=== PATIENT | female | born 1940 | race Caucasian/White ===

== ENCOUNTER → 2017-02-07 17:56 | Outpatient (CLI) | payer MEDICARE, OTHER, SELFPAY | PROVIDERS: Visit Provider Otolaryngology | DX: R69 Illness, unspecified (principal) | CPT/HCPCS: 87070; 87205 ==

== ENCOUNTER → 2017-07-02 09:09 | Outpatient (CLI) | payer MEDICARE, OTHER, SELFPAY ==
--- NOTE | 2017-07-02 09:15 | ECHOD_ITS ---
Reason For Study: PHTN, cough Procedure This was a 2D Doppler, Color Flow transthoracic echocardiogram. The exam was of fair technical quality due to body habitus. The study was technically difficult. Exam performed in department. Left Ventricle Normal LV size. Left ventricular systolic function is normal. The estimated ejection fraction is 60 %. Normal diastology for age. No regional wall motion abnormalities noted. Right Ventricle Normal RV size. Normal systolic function. Atria The left atrium is mildly enlarged. Normal right atrium. No doppler evidence for ASD. Mitral Valve There is no mitral annular calcification. Normal mitral valve. Trivial mitral valve insufficiency. Tricuspid Valve Normal tricuspid valve. Mild tricuspid valve insufficiency. Right ventricular systolic pressure estimated to be 31 mmHg. Aortic Valve Trisinus/trileaflet aortic valve. Mild focal aortic valve calcification. Pulmonic Valve The pulmonic valve is not well visualized. Trivial pulmonic valve insufficiency. Great Vessels Normal sized aortic root. Calcified aortic root. Pericardium/Pleural No pericardial effusion. MMode/2D Measurements & Calculations LVIDd: 3.6 cm IVSd: 1.0 cm Ao root diam: 3.2 cm LVIDs: 2.7 cm LVPWd: 0.77 cm RVDd: 3.4 cm FS: 26.9 % LAV(MOD-bp): 61.9 ml LA A4 area: 20.0 cm2 RA A4 area: 15.2 cm2 LAV(MOD-bp) Indexed: 32.4 ml/m2 LAV(MOD-sp2): 55.4 ml LAV(MOD-sp4): 68.5 ml Doppler Measurements & Calculations MV E max luis: 60.3 cm/sec Lat Peak E' Luis: 10.8 cm/sec Med Peak E' Luis: 5.7 cm/sec MV A max luis: 87.5 cm/sec E/E' lat: 5.6 E/E' med: 10.6 MV E/A: 0.69 Ao V2 max: 112.7 cm/sec LV V1 max: 106.4 cm/sec PA V2 max: 69.9 cm/sec Ao max P.1 mmHg LV V1 max P.5 mmHg PI end-d luis: 139.8 cm/sec TR max luis: 241.4 cm/sec TR max P.4 mmHg Interpretation Summary The study was technically difficult. Left ventricular systolic function is normal. The estimated ejection fraction is 60 %. The left atrium is mildly enlarged. Trivial mitral valve insufficiency. Mild tricuspid valve insufficiency. Mild focal aortic valve calcification. Trivial pulmonic valve insufficiency. Calcified aortic root. Right ventricular systolic pressure estimated to be 31 mmHg. Normal diastology for age. Ordering Physician: Yakov Lima Referring Physician: Yakov Lima Performed By: Ashley Martin RDCS, RVT
--- NOTE | 2017-07-02 13:37 | PFT ---
INTRODUCTION: The patient is a 77-year-old female currently under the care of Dr. Lima presents for pulmonary function testing secondary to a diagnosis of cough. Respiratory therapy reports good patient effort. Bronchodilators were used during testing. INTERPRETATION: Forced expiration spirometry demonstrates no evidence of a large airways obstructive ventilatory defect. There was no significant response to aerosolized bronchodilators, based upon strict ATS criteria. Spirograms are of good quality and plateau gradually indicating slow emptying of the lungs. The respiratory flow volume loop reveals decreased expiratory flow rates at high lung volumes consistent with small airways obstruction. Body plethysmography was performed and reveals lung volumes to be within normal limits. Diffusing capacity by single breath CO was at the lower limits of normal. IMPRESSION: These pulmonary function studies are essentially within normal limits. However, there are subtle findings of potential small airways obstruction. If asthma is of clinical concern, a methacholine challenge can be completed for further clarification.
--- NOTE | 2017-07-02 13:40 | PFT_ITS ---
INTRODUCTION: The patient is a 77-year-old female currently under the care of Dr. Lima presents for pulmonary function testing secondary to a diagnosis of cough. Respiratory therapy reports good patient effort. Bronchodilators were used during testing. INTERPRETATION: Forced expiration spirometry demonstrates no evidence of a large airways obstructive ventilatory defect. There was no significant response to aerosolized bronchodilators, based upon strict ATS criteria. Spirograms are of good quality and plateau gradually indicating slow emptying of the lungs. The respiratory flow volume loop reveals decreased expiratory flow rates at high lung volumes consistent with small airways obstruction. Body plethysmography was performed and reveals lung volumes to be within normal limits. Diffusing capacity by single breath CO was at the lower limits of normal. IMPRESSION: These pulmonary function studies are essentially within normal limits. However , there are subtle findings of potential small airways obstruction. If asthma is of clinical concern, a methacholine challenge can be completed for further clarification.
== END ==
PROVIDERS: Family Provider Family Medicine; Visit Provider Family Medicine
DX: I27.20 Pulmonary hypertension, unspecified (principal); R05 Cough
CPT/HCPCS: 93306; 94060; 94726; 94729

== ENCOUNTER → 2017-08-06 10:12 | Outpatient (CLI) | payer MEDICARE, OTHER, SELFPAY ==
--- NOTE | 2017-08-06 10:15 | NM_ITS ---
CLINICAL: 77-year-old female with reported history of painful left hip arthroplasty operated > 10 years previous. THREE PHASE PELVIS- WHOLE BODY RADIONUCLIDE 99m Tc MDP BONE SCINTIGRAPHY COMPARISON: None available FINDINGS: Following the intravenous administration of 25.5 mCi of 99m Tc MDP, bone images reveal: 1. The flow and immediate static blood pool acquisitions of the pelvis demonstrate normal arterial and venous phase distribution of the radiopharmaceutical. 2. Delayed acquisitions demonstrate increased tracer concentration noted in the acetabular component of the symptomatic left hip arthroplasty. 3. Facilitated tracer concentration is noted in the mid cervical spine posteriorly on the left and right, visualized left wrist and hand, patellofemoral compartment of the right knee, the fifth lumbar vertebra and first sacral segment at the intervertebral disc space. 4. The remaining skeletal structures are scintigraphically unremarkable with bilateral renal units and urinary bladder activity identified. The right kidney demonstrates prominent collecting system activity noted at the level of the renal pelvis. NM/Bone Scan Three Phase IMPRESSION: 1. Increased tracer concentration defined in the acetabular component of the symptomatic-painful left hip prosthesis is consistent with a high likelihood of loosening in the setting of operative intervention > 2 years prior to the current presentation. If an infectious etiology is a diagnostic consideration, correlation with labeled leukocyte imaging is recommended. 2. Degenerative arthritis appears expressed in the cervical spine, fifth lumbar vertebra and sacrum, left wrist and hand, the right knee. 3. There is no definitive typical scintigraphic evidence of skeletal metastatic disease on the current examination. Electronically Signed: Nhan Jones DO at 10:39 EDT Tel , Service support ,
== END ==
PROVIDERS: Family Provider Family Medicine; PCP Family Medicine
DX: M25.552 Pain in left hip (principal); Z96.642 Presence of left artificial hip joint
CPT/HCPCS: 78315

== ENCOUNTER 2017-08-23 19:33 | Observation (INO) | payer MEDICARE, OTHER, SELFPAY ==
[2017-08-23 19:36] VITALS: BP 153/96; PULSE 90; PULSE 93; RESP 18; TEMP 37.3; O2SAT 97; O2SAT 99; BMI 30.2
--- NOTE | 2017-08-23 19:39 | EKG12_ITS ---
Test Reason : CP Blood Pressure : / mmHG Vent. Rate : 078 BPM Atrial Rate : 078 BPM P-R Int : 214 ms QRS Dur : 076 ms QT Int : 358 ms P-R-T Axes : 000 000 024 degrees QTc Int : 408 ms Sinus rhythm with 1st degree A-V block Otherwise normal ECG Confirmed by BUNNY GARCIA, MICHELLE ([id number]), communications editor GINGER REEDER ([id number]) on 08/27/2017 1:47:41 PM Referred By: VICENTE Confirmed By:MICHELLE HOLLIS MD
--- NOTE | 2017-08-23 19:39 | RAD_ITS ---
STUDY: X-RAY CHEST REASON FOR EXAM: Female, 77 years old. Chest pain TECHNIQUE: Single frontal view COMPARISON: None. FINDINGS: The lungs are clear and expanded. There is no demonstrated pleural abnormality. Normal size heart. Normal mediastinum and andreas. Normal visualized pulmonary arteries. Calcified aortic arch and descending thoracic aorta. Normal visualized thoracic spine. Normal visualized ribs, clavicles, and shoulders. There is no demonstrated abnormality of the visualized soft tissue structures of the upper abdomen. RAD/Chest 1 View (Portable) IMPRESSION: Normal x-ray examination of the chest. Electronically Signed: Freddie Naidu DO at 20:03 EDT Tel [phone], Service support ,
--- NOTE | 2017-08-23 19:52 | ED.RN ---
INTELLIGENCE OFFICER CALLED FOR EKG, PULLED OLD EKG FOR
[2017-08-23 20:22] VITALS: O2SAT 97
[2017-08-23 20:33] LABS: Anion Gap 7 (5-15); BUN 15 mg/dL (7-18); Calcium,Total 9.3 mg/dL (8.5-10.1); Chloride 106 mmol/L (98-107); Creatinine, Serum 0.84 mg/dL (0.55-1.02); EST Glomerular Filtration Rate 71 mL/min (>60); Est Glom Filt Rate - Afr Amer 85 mL/min (>60); Estimated Creatinine Clearance 51.27 ml/min; Glucose 99 mg/dL (74-106); Potassium 4.5 mmol/L (3.5-5.1); Sodium Level 141 mmol/L (136-145)
[2017-08-23 20:35] LABS: Absolute Lymphocyte Count 2.23 X10^3/ul (0.83-4.51); Basophil# 0.05 X10^3/uL; Basophil% 0.8 % (0-1); Eosinophil# 0.14 X10^3/uL; Eosinophils% 2.3 % (0-5); Hematocrit 45.5 % (37-47); Hemoglobin 15.3 g/dl (12.0-15.0); Lymphocyte # 2.23 X10^3/ul (4.0); Lymphocyte % 37.2 % (19-41); Mean Corp Hgb Conc 33.6 g/gl (32-36); Mean Corpuscular Hgb 31.9 pg (27.0-32.0); Mean Corpuscular Volume 94.8 fL (81-99); Mean Platelet Vol. 10.6 fl (6.2-12.0); Monocyte# 0.58 X10^3/uL; Monocyte% 9.7 % (0-10); Neutrophil # 2.99 X10^3/uL (2.7-7.7); Neutrophil % 49.8 % (47-70); Platelet Count 227 K/mm3 (150-450); RBC Distribution Width CV 13.8 % (11.6-14.6); RBC Distribution Width SD 47.5 fl (35.1-43.9)
[2017-08-23 20:37] LABS: POSITIVE COUNT NO; POSITIVE DIFFERENTIAL NO; POSITIVE MORPHOLOGY NO
--- NOTE | 2017-08-23 20:41 | ED.VISSUMM ---
- ER Visit Summary Date of Service: 08/23/17 Chief Complaint: Chest pain History of Present Illness: The patient is a 77 F with history of costochondritis who presents for chest pain. Onset was 6 hours ago while patient was shopping with her grandchildren. She had sudden onset of diaphoresis, dizziness, and anterior chest pain that she described as a profound heaviness. She had radiation into her back. She denies shortness of breath but states that she coughs with deep breaths, and this is been going on for 2 months. She currently is having mild chest discomfort. No radiation at this time. No exacerbating or relieving factors. Patient has not had any aspirin. No fever, overt shortness of breath, abdominal pain, nausea or vomiting, or other complaints at this time. Patient denies any history of diabetes, hypertension, hypercholesterolemia, coronary artery disease. She states she had an echo on August 06 and has had a stress test 1 year ago. Physical Examination: Vital signs: afebrile, hemodynamically stable, no hypoxia on room air General: well nourished, well developed, in no distress Skin: warm, dry, no rash, no pallor HEENT: normocephalic and atraumatic; PERRL, EOMI, moist mucous membranes Cardiovascular: regular rate and rhythm without murmurs, no peripheral edema, 2+ pulses all distal extremities, no chest wall tenderness Respiratory: No increased work of breathing, lungs are clear to auscultation bilaterally, no rales, rhonchi or wheezing Abdominal: Abdomen is soft, nontender with normoactive bowel sounds, no guarding or rebound, no masses MSK: Moves all extremities, no deformities, normal strength Neuro: Awake and alert, oriented ?4. No facial droop, sensation and motor function intact and symmetric Test Results: Abnormal Lab Results 08/23/17 08/23/17 20:02 20:02 WBC 6.0 RBC 4.80 Hgb 15.3 H Hct 45.5 MCV 94.8 MCH 31.9 MCHC 33.6 RDW 13.8 RDW Differential 47.5 H Plt Count 227 MPV 10.6 Immature Gran % (Auto) 0.200 Neut % (Auto) 49.8 Lymph % (Auto) 37.2 Harlan % (Auto) 9.7 Eos % (Auto) 2.3 Baso % (Auto) 0.8 Absolute Neuts (auto) 3.0 Absolute Lymphs (auto) 2.23 Total Counted Not Reportable Sodium 141 Potassium 4.5 Chloride 106 Carbon Dioxide 28.0 Anion Gap 7 BUN 15 Creatinine 0.84 Estim Creat Clear Calc 51.27 Est GFR (MDRD) Af Amer 85 Est GFR (MDRD) Non-Af 71 BUN/Creatinine Ratio 18.0 Glucose 99 Calcium 9.3 Troponin I < 0.015 Clinical Impression(s) from Imaging Studies Chest X-Ray 08/23/17 19:39 IMPRESSION: Normal x-ray examination of the chest. Electronically Signed: Freddie Naidu DO at 20:03 EDT Tel [phone], Service support , Medications Given Discontinued Medications Aspirin (Aspirin, Baby) 324 mg PO X1 ONE Stop: 08/23/17 22:33 Emergency Department Course and Treatment: Patient presents with chest pain with associated diaphoresis and dizziness, described as heaviness, which is concerning for possible acute coronary syndrome. Patient has no risk factors and does have a history of costochondritis. EKG showed no ischemic changes. CBC and CMP were unremarkable. Troponin negative. Chest x-ray showed no acute process. Patient had resolution of her dull residual pain without any intervention. Patient received aspirin. Nitro was unnecessary as patient was not actively having pain. Given patient's age and her concerning presentation, HEART score is 4, and her at moderate risk of 30-day MACE. That she would benefit from admission for further chest pain workup. Plan was discussed with patient who was in agreement. Patient was discussed with the hospitalist for admission for chest pain rule out. Treatment Plan: [] Disposition: [] Impression: Acute chest pain, concern for ACS This note was generated with [employer] dictation software. It may contain incorrect words, spelling, and punctuation that were not noted in review of the chart prior to signing ED Disposition - Plan for ED Patient: Chief Complaint: Chest Pain Referrals: Ross Lima MD [Primary Care Provider] -
[2017-08-23 20:43] VITALS: BP 145/72; PULSE 66; RESP 18; O2SAT 96
[2017-08-23 21:36] VITALS: BP 154/71; PULSE 66; RESP 22; O2SAT 98
[2017-08-23 22:08] VITALS: BP 156/72; PULSE 67; RESP 17; O2SAT 98
[2017-08-23] MEDS: Aspirin 81 MG TAB.CHEW 324 MG PO (22:47)
[2017-08-23 23:07] VITALS: BP 156/75; PULSE 68; RESP 19; O2SAT 99
--- NOTE | 2017-08-23 23:24 | PCM.HP.STD ---
Problem List (1) Hypothyroid Status: Acute (2) Chest pain Status: Acute History of Present Illness Date of Admission: 08/23/17 Chief Complaint: Chest pain The patient is a 77 year old female w/ h/o hypothyroid admitted for chest pain. She was shopping with her grandchildren when she suddenly develop substernal chest pressure. She was dizzy and diaphoresis at that time. Pain was constant. Nothing made it better or worse. She also had a profound headache. Pain radiated up the neck and down the left arm. Pain was not associated with exertion. By the time pt arrived in the ED, she had left sided chest pain and that pain was pulling. It was mild to moderate. Nothing made it better or worse. It gradually decreased. Past Medical History Allergies adhesive tape Adverse Reaction (Verified 08/23/17 19:35) BLISTERS ciprofloxacin [From Cipro] Adverse Reaction (Verified 08/23/17 19:35) SEIZURE ciprofloxacin HCl [From Cipro] Adverse Reaction (Verified 08/23/17 19:35) SEIZURE lansoprazole Adverse Reaction (Verified 08/23/17 19:35) Nausea/Vom/Diarrhea pantoprazole Adverse Reaction (Verified 08/23/17 19:35) Nausea/Vom/Diarrhea ranitidine Adverse Reaction (Verified 08/23/17 19:35) Nausea/Vom/Diarrhea sertraline HCl [From Zoloft] Adverse Reaction (Verified 08/23/17 19:35) DEPRESSION Home Medications: Ambulatory Orders Medication Instructions Recorded Levothyroxine [Synthroid] 88 mcg PO DAILY 08/26/15 Anastrozole [Arimidex] 1 mg PO DAILY 03/15/16 Surgical History: no surgical history Psychiatric History: No pertinent psych hx AUTO REBUILDER History: No pertinent AUTO REBUILDER history Lives: Spouse/ Significant Other Smoking Status: Never smoker Tobacco Use: Non-smoker Alcohol: None Drugs: None Review of Systems Constitutional: Denies: Chills, Fever, Weight Change HEENT: Denies: Head Aches, Sinus Congestion, Sinus Drainage Cardiovascular: Reports: Chest Pain, Palpitations Respiratory: Denies: Cough, Shortness of breath at rest, Sputum production Gastrointestinal: Denies: Abdominal Pain, Nausea, Vomiting Genitourinary: Denies: Dysuria Musculoskeletal: Denies: Joint Pain, Joint Tenderness Skin: Denies: Rash, Wounds Neurological: Denies: Numbness, Tingling, Focal weakness Psychiatric: Denies: Anxiety, Depression, Homicidal Ideations, Suicidal Ideations Hematologic/ Lymphatic: Denies: Easy Bruising, Easy Bleeding VTE Information - Inpt Only VTE Present on Admission: No VTE Mechan Device Prophylaxis: SCD's VTE Pharm Prophylaxis ordered?: Yes Patient Problems: Active and Suspected Problems Hypothyroid (Acute) Chest pain (Acute) - Physical Exam General: Alert, Oriented x3, Cooperative HEENT: Atraumatic, PERRLA, EOMI, Normocephalic Neck: Supple, No JVD, Negative Carotid Bruits Lungs: Clear to auscultation, Normal air movement Cardiovascular: Regular rate, No murmurs Abdomen: Bowel Sounds Present, Soft, Non Tender Extremities: No edema, Capillary Refill Less than 3 Seconds Skin: No rashes, No breakdown Musculoskeletal: No Tenderness to Palpation of Joints or Extremities Neurological: Cranial nerves II-XII grossly intact Psych/Mental Status: Normal Affect, Appropriate Vital Signs Temp Pulse Resp BP Pulse Ox 99.1 F 68 19 H 156/75 H 99 08/23/17 19:36 08/23/17 23:07 08/23/17 23:07 08/23/17 23:07 08/23/17 23:07 Oxygen Delivery Method Room Air Weight: 82.3 kg Body Mass Index (BMI) 30.2 Laboratory Tests Past 24 Hrs 08/23/17 08/23/17 20:02 20:02 WBC 6.0 RBC 4.80 Hgb 15.3 H Hct 45.5 MCV 94.8 MCH 31.9 MCHC 33.6 RDW 13.8 RDW Differential 47.5 H Plt Count 227 MPV 10.6 Immature Gran % (Auto) 0.200 Neut % (Auto) 49.8 Lymph % (Auto) 37.2 Kimble % (Auto) 9.7 Eos % (Auto) 2.3 Baso % (Auto) 0.8 Absolute Neuts (auto) 3.0 Absolute Lymphs (auto) 2.23 Total Counted Not Reportable Sodium 141 Potassium 4.5 Chloride 106 Carbon Dioxide 28.0 Anion Gap 7 BUN 15 Creatinine 0.84 Estim Creat Clear Calc 51.27 Est GFR (MDRD) Af Amer 85 Est GFR (MDRD) Non-Af 71 BUN/Creatinine Ratio 18.0 Glucose 99 Calcium 9.3 Troponin I < 0.015 Assessment/Plan All Active Problems Hypothyroid (Acute) Chest pain (Acute) 77 year old female w/ h/o hypothyroid admitted for chest pain. 1) Chest pain: Heart score 5 EKG is nondiagnostic. Chest xray unremarkable and trop negative. Started aspirin, nitrates, coreg, statin, and morphine sulfate. Serial trops, ECHO and stress test in AM. 2) Hypothyroid: Resume home meds. 3) Prophylaxis: SCD / heparin
[2017-08-24 00:04] VITALS: BP 155/80; PULSE 80; RESP 16; TEMP 37.1; O2SAT 97
[2017-08-24 00:07] VITALS: BMI 29.7
[2017-08-24 00:26] VITALS: BMI 29.8
[2017-08-24 01:23] VITALS: PULSE 72
[2017-08-24 03:22] VITALS: PULSE 78
[2017-08-24 03:41] LABS: Hematocrit 42.8 % (37-47); Hemoglobin 14.7 g/dl (12.0-15.0); Mean Corp Hgb Conc 34.3 g/gl (32-36); Mean Corpuscular Volume 93.2 fL (81-99); Mean Platelet Vol. 10.1 fl (6.2-12.0); Platelet Count 203 K/mm3 (150-450); RBC Distribution Width CV 13.7 % (11.6-14.6); RBC Distribution Width SD 46.7 fl (35.1-43.9); Red Blood Count 4.59 M/mm3 (4.2-5.4); Scan Indicated on CBC? Y/N NO; White Blood Count 6.4 K/mm3 (4.4-11.0)
[2017-08-24 04:10] LABS: BNP,B-Type NATRIURETIC PEPTIDE 94.9 pg/mL (0-100)
[2017-08-24 05:27] VITALS: BP 135/69; PULSE 65; RESP 16; TEMP 37.4; O2SAT 94
[2017-08-24] MEDS: Aspirin E.C. 81 MG Tablet PO (05:33)
[2017-08-24] MEDS: Levothyroxine 88 MCG Tablet PO (05:33)
--- NOTE | 2017-08-24 05:55 | EKG12_ITS ---
Test Reason : AM EKG Blood Pressure : / mmHG Vent. Rate : 070 BPM Atrial Rate : 070 BPM P-R Int : 204 ms QRS Dur : 080 ms QT Int : 398 ms P-R-T Axes : 038 018 027 degrees QTc Int : 429 ms Normal sinus rhythm Normal ECG When compared with ECG of 24-AUG-2017 00:19, MANUAL COMPARISON REQUIRED, DATA IS UNCONFIRMED Confirmed by BUNNY GARCIA, MICHELLE ([id number]), editor magazine GINGER REEDER ([id number]) on 08/27/2017 3:04:53 PM Referred By: ARIANA Confirmed By:MICHELLE HOLLIS MD
[2017-08-24 06:59] LABS: International Normalized Ratio 1.1; Partial Thromboplast Time 31.2 Seconds (24.1-36.2)
[2017-08-24 07:03] LABS: D-Dimer Quantitative (DVT/PE) 0.57 FEU/ug/m (0.27-0.49)
[2017-08-24 07:07] VITALS: PULSE 83
[2017-08-24 07:39] LABS: AST(SGOT) 27 U/L (15-37); Alanine Aminotransfer ALT/SGPT 27 U/L (13-56); Albumin, Serum 3.3 g/dL (3.2-5.0); Alkaline Phosphatase 88 U/L (45-117); Anion Gap 10 (5-15); BUN 12 mg/dL (7-18); BUN/Creat Ratio 17.2 RATIO (10-20); Calcium,Total 8.7 mg/dL (8.5-10.1); Chloride 109 mmol/L (98-107); Cholesterol 141 mg/dL (200); EST Glomerular Filtration Rate 87 mL/min (>60); Est Glom Filt Rate - Afr Amer 105 mL/min (>60); Estimated Creatinine Clearance 43.07 ml/min; Globulin 3.4 g/dL (2.2-4.2); Glucose 90 mg/dL (74-106); High Density Lipoprotein 54 mg/dL; Potassium 3.7 mmol/L (3.5-5.1); Protein, Total 6.7 g/dL (6.4-8.2); Sodium Level 141 mmol/L (136-145); Thyroid Stim Hormone (TSH) 0.15 uIU/mL (0.358-3.74); Triglycerides 63 mg/dL; Very Low Density Lipoprotein 13 mg/dL (5-40)
--- NOTE | 2017-08-24 09:24 | STRESSREP ---
Stress Test Report Pharmacologic myocardial perfusion stress test. 77-year-old lady with a history of chest pain. Stress protocol: Resting EKG demonstrates normal sinus rhythm with a rate of 71 bpm normal intervals and noted. Resting blood pressure is 128/64. 0.4 mg of regadenoson was infused per usual protocol followed by rapid intravenous saline flush injection continuous EKG monitoring was performed. The maximum heart rate attained was 93 bpm which was 64% of maximum predicted heart rate the maximum workload was 1 metabolic equivalent. At rest there were no ST or T-wave changes noted suggest abnormal flow reserve at peak infusion no ST or T-wave changes were noted suggest abnormal flow reserve. The resting blood pressure is 128/64 with a final blood pressure of the same maximum blood pressure 732/62. Myocardial perfusion protocol. 12.0 mCi of technetium 99m sestamibi was injected at rest. 0.4 mg of regadenoson was infused per usual protocol peak infusion 35.8 mCi of technetium 99m sestamibi was injected stress images were obtained stress and rest images were reconstructed and compared in the short axis vertical long and horizontal long axis. Gated images were also obtained Perfusion SPECT analysis: Review of the stress images demonstrate normal uptake of tracer noted in all areas of myocardium. The resting images similarly demonstrate normal uptake of tracer noted in all areas myocardium. No areas of reversibility are noted suggest ischemia no previous infarct is noted. Gated SPECT analysis: The gated ejection fraction is 86%. Conclusion: Normal pharmacologic myocardial perfusion stress test. Preserved ejection fraction.
[2017-08-24 10:58] VITALS: PULSE 101
--- NOTE | 2017-08-24 11:01 | PCM.DC ---
- Discharge Diagnoses Current Active Problems: Current Active and Chronic Problems Hypothyroid (Acute) Chest pain (Acute) You will use the following diet at home:: No restrictions Your food should be the consistency of: Regular Your liquids should be the consistency of: Regular/Thin Discharge Activity: Return to Normal Activity Weight Bearing Status: Full weight bearing Allergies/Adverse Reactions: Allergies adhesive tape Adverse Reaction (Verified 08/23/17 19:35) BLISTERS ciprofloxacin [From Cipro] Adverse Reaction (Verified 08/23/17 19:35) SEIZURE ciprofloxacin HCl [From Cipro] Adverse Reaction (Verified 08/23/17 19:35) SEIZURE lansoprazole Adverse Reaction (Verified 08/23/17 19:35) Nausea/Vom/Diarrhea pantoprazole Adverse Reaction (Verified 08/23/17 19:35) Nausea/Vom/Diarrhea ranitidine Adverse Reaction (Verified 08/23/17 19:35) Nausea/Vom/Diarrhea sertraline HCl [From Zoloft] Adverse Reaction (Verified 08/23/17 19:35) DEPRESSION Medications to take at Discharge Levothyroxine [Synthroid] 88 mcg PO DAILY 08/26/15 Anastrozole [Arimidex] 1 mg PO DAILY 03/15/16 Aspirin E.C. [Ecotrin] 81 mg PO DAILY@0800 tablet 08/24/17 Primary Care Physician: Ross Lima MD [Primary Care Provider] - Please follow up with your Primary Care Physician in: in 2 weeks Test Results: Test results from this visit will be discussed in further detail at your follow-up appointment, if applicable. Please Follow Up With: your supervisor parking lot When: within 2 weeks
--- NOTE | 2017-08-24 14:19 | PCM.DC.SUM ---
Discharge Date and Diagnosis Date of Admission: 08/23/17 Date of Discharge: 08/24/17 - Primary Discharge Diagnosis #1 musculoskeletal chest pain #2 hypothyroidism #3 mild elevation of bilirubin-etiology unknown Hospital Course and Treatment Imaging Results: 08/24/17 05:55 Nuclear Stress Test - Chemical [NM] AM (NON MEDS) Operations: None Procedures: Nuclear stress test Summary of Care Provided: The patient is a 77 year old F seen in the emergency room at [facility] with a complaint of precordial chest pain which she described as a pressure-like sensation, it radiated into her left neck area and down her left arm, she stated it also caused a headache. Workup in the emergency room included an EKG which showed no evidence of ischemic changes, cardiac isoenzymes were unremarkable, patient had a bilirubin slightly elevated, d-dimer was slightly elevated, and chest x-ray showed no acute process. Patient was placed in observation status on PCU, she was monitored on telemetry, cardiac enzymes were cycled and these were normal. Patient underwent a resting nuclear pharmacological stress test which was negative for reversible ischemia. On 08/24/17, patient was seen and examined felt to be in stable condition for discharge home. Patient was instructed to take one baby aspirin a day and follow-up with a cable dispatcher-she had seen a cable dispatcher recently after being sent there from her PCP due to some calcifications in her aorta that was detected on imaging studies. Discharge Activity: Return to Normal Activity Weight Bearing Status: Full weight bearing Home Medications: Medications to take at Discharge Levothyroxine [Synthroid] 88 mcg PO DAILY 08/26/15 Anastrozole [Arimidex] 1 mg PO DAILY 03/15/16 Aspirin E.C. [Ecotrin] 81 mg PO DAILY@0800 tablet 08/24/17 Primary Care Physician: Ross Lima MD [Primary Care Provider] - Please follow up with your Primary Care Physician in: in 2 weeks Please Follow Up With: your cable dispatcher When: within 2 weeks Disposition: Home Minutes spent on discharge:: 25 Patient Condition:: Stable Medical Necessity - Tobacco Use Smoking Status: Never smoker Tobacco Use: Non-smoker Meaningful Use Info Meaningful Use Diagnoses (Choose all that apply): None applicable Code Visit OBSV E&M: 92395 Observation care discharge
--- NOTE | 2017-08-24 14:25 | DS.PCM_ITS ---
Discharge Date and Diagnosis Date of Admission: 08/23/17 Date of Discharge: 08/24/17 - Primary Discharge Diagnosis #1 musculoskeletal chest pain #2 hypothyroidism #3 mild elevation of bilirubin-etiology unknown Hospital Course and Treatment Imaging Results: 08/24/17 05:55 Nuclear Stress Test - Chemical [NM] AM (NON MEDS) Operations: None Procedures: Nuclear stress test Summary of Care Provided: The patient is a 77 year old F seen in the emergency room at [facility] with a complaint of precordial chest pain which she described as a pressure-like sensation, it radiated into her left neck area and down her left arm, she stated it also caused a headache. Workup in the emergency room included an EKG which showed no evidence of ischemic changes, cardiac isoenzymes were unremarkable, patient had a bilirubin slightly elevated, d- dimer was slightly elevated, and chest x-ray showed no acute process. Patient was placed in observation status on PCU, she was monitored on telemetry, cardiac enzymes were cycled and these were normal. Patient underwent a resting nuclear pharmacological stress test which was negative for reversible ischemia. On 08/24/17, patient was seen and examined felt to be in stable condition for discharge home. Patient was instructed to take one baby aspirin a day and follow-up with a prompt care rn-she had seen a prompt care rn recently after being sent there from her PCP due to some calcifications in her aorta that was detected on imaging studies. Discharge Activity: Return to Normal Activity Weight Bearing Status: Full weight bearing Home Medications: Medications to take at Discharge Levothyroxine [Synthroid] 88 mcg PO DAILY 08/26/15 Anastrozole [Arimidex] 1 mg PO DAILY 03/15/16 Aspirin E.C. [Ecotrin] 81 mg PO DAILY@0800 tablet 08/24/17 Primary Care Physician: Ross Lima MD [Primary Care Provider] - Please follow up with your Primary Care Physician in: in 2 weeks Please Follow Up With: your prompt care rn When: within 2 weeks Disposition: Home Minutes spent on discharge:: 25 Patient Condition:: Stable Medical Necessity - Tobacco Use Smoking Status: Never smoker Tobacco Use: Non-smoker Meaningful Use Info Meaningful Use Diagnoses (Choose all that apply): None applicable Code Visit OBSV E&M: 14877 Observation care discharge
== END 2017-08-24 11:50 | disposition home or self-care (01) ==
LOC: ED 20:56 → PCU 23:36
PROVIDERS: Admitting Provider Internal Medicine; Emergency Provider Emergency Medicine; Family Provider Family Medicine; PCP Family Medicine; Visit Provider Internal Medicine
DX: R07.89 Other chest pain (principal); E03.9 Hypothyroidism, unspecified; Z79.899 Other long term (current) drug therapy; M54.9 Dorsalgia, unspecified; R42 Dizziness and giddiness; R51 Headache; R05 Cough
CPT/HCPCS: 36415; 71045; 78452; 80048; 80053; 80061; 83880; 84443; 84484; 85025; 85027; 85379; 85610; 85730; 93005; 93017; 97802; 99218; 99283; A9500; A4216; G0378; J2785

== ENCOUNTER → 2017-10-25 15:40 | Outpatient (CLI) | payer MEDICARE, OTHER, SELFPAY | PROVIDERS: Family Provider Family Medicine; PCP Family Medicine; Visit Provider Otolaryngology | DX: J01.90 Acute sinusitis, unspecified (principal) | CPT/HCPCS: 87070; 87205 ==

== ENCOUNTER → 2018-04-15 14:38 | Outpatient (CLI) | payer MEDICARE, OTHER, SELFPAY ==
[2018-04-15 15:28] LABS: Absolute Neutrophil Count 1.5 X10^3/uL (2.0-7.7); Basophil# 0.05 X10^3/uL; Basophil% 1.1 % (0-1); Eosinophil# 0.16 X10^3/uL; Eosinophils% 3.4 % (0-5); Hematocrit 46.1 % (37-47); Hemoglobin 15.3 g/dl (12.0-15.0); Lymphocyte % 54.7 % (19-41); Mean Corp Hgb Conc 33.2 g/gl (32-36); Mean Corpuscular Hgb 31.8 pg (27.0-32.0); Mean Corpuscular Volume 95.8 fL (81-99); Monocyte# 0.48 X10^3/uL; Monocyte% 10.1 % (0-10); Neutrophil # 1.46 X10^3/uL (2.7-7.7); Neutrophil % 30.7 % (47-70); Platelet Count 232 K/mm3 (150-450); RBC Distribution Width CV 13.9 % (11.6-14.6); RBC Distribution Width SD 48.7 fl (35.1-43.9); Red Blood Count 4.81 M/mm3 (4.2-5.4); White Blood Count 4.8 K/mm3 (4.4-11.0)
[2018-04-15 15:32] LABS: POSITIVE COUNT NO; POSITIVE DIFFERENTIAL NO; POSITIVE MORPHOLOGY NO
[2018-04-15 16:04] LABS: ALB/GLOB Ratio 1.3 RATIO (0.9-2.4); AST(SGOT) 28 U/L (15-37); Alanine Aminotransfer ALT/SGPT 22 U/L (13-56); Alkaline Phosphatase 103 U/L (45-117); Anion Gap 7 (5-15); BUN 9 mg/dL (7-18); Calcium,Total 9.1 mg/dL (8.5-10.1); Chloride 107 mmol/L (98-107); Cholesterol 175 mg/dL (200); Creatinine, Serum 0.64 mg/dL (0.55-1.02); EST Glomerular Filtration Rate 95 mL/min (>60); Est Glom Filt Rate - Afr Amer 115 mL/min (>60); Globulin 3.1 g/dL (2.2-4.2); Glucose 82 mg/dL (74-106); High Density Lipoprotein 60 mg/dL; Potassium 4.9 mmol/L (3.5-5.1); Protein, Total 7.1 g/dL (6.4-8.2); Sodium Level 141 mmol/L (136-145); T4 Free Direct 1.45 ng/dL (0.76-1.46); Thyroid Stim Hormone (TSH) 0.59 uIU/mL (0.358-3.74); Triglycerides 95 mg/dL; Very Low Density Lipoprotein 19 mg/dL (5-40)
== END ==
PROVIDERS: Family Provider Family Medicine; PCP Family Medicine; Referring Provider Family Medicine; Visit Provider Family Medicine
DX: E03.9 Hypothyroidism, unspecified (principal)
CPT/HCPCS: 36415; 80053; 80061; 84439; 84443; 85025

== ENCOUNTER → 2018-05-07 13:54 | Outpatient (CLI) | payer MEDICARE, OTHER, SELFPAY ==
--- NOTE | 2018-05-07 14:01 | RAD_ITS ---
STUDY: X-RAY - LEFT SHOULDER REASON FOR EXAM: Female, 78 years old. Pain. TECHNIQUE: 4 view(s) of the shoulder. COMPARISON: None. FINDINGS: Normal glenohumeral articulation. Normal acromioclavicular joint. Normal acromion. Normal humeral head and visualized proximal humerus. The soft tissue structures are unremarkable. There is no demonstrated fracture. Normal visualized pulmonary apex. RAD/Shoulder min 2 Views IMPRESSION: Normal x-ray examination of the shoulder. Electronically Signed: Craig Treviño MD at 0:02 EDT , Service support ,
--- NOTE | 2018-05-07 14:08 | RAD_ITS ---
STUDY: X-RAY - RIGHT SHOULDER REASON FOR EXAM: Right shoulder pain for a few weeks, no specific injury. TECHNIQUE: 4 view(s) of the shoulder. COMPARISON: Radiographs of the left shoulder obtained the same day. FINDINGS: Normal glenohumeral articulation. Normal acromioclavicular joint. Normal acromion. There is deformity of the surgical neck of the humerus and greater tuberosity from remote fracture. There are surgical clips in the axilla. Normal visualized pulmonary apex. RAD/Shoulder min 2 Views IMPRESSION: Chronic healed fracture deformity of the proximal humerus. Electronically Signed: Al Ramirez MD at 15:40 EDT Tel , Service support ,
== END ==
PROVIDERS: Family Provider Family Medicine; PCP Family Medicine; Referring Provider Family Medicine; Visit Provider Family Medicine
DX: M75.41 Impingement syndrome of right shoulder (principal)
CPT/HCPCS: 73030

== ENCOUNTER 2018-05-26 10:00 | Outpatient (RCR) | payer MEDICARE, OTHER, SELFPAY ==
--- NOTE | 2018-05-14 09:11 | HP.OTEVAL ---
Patient's Visit Information POP HORNER is a 78 year old F, referred to Occupational Therapy by Chavo Burton MD, with a diagnosis of right Duyuptrens contracture. Date of Evaluation: 05/13/18 Occupational Therapist: Vivi Graham, ARISR/Oleksandr, CHT - Subjective Subjective: This 78 year old female was seen for inital OT eval with dx of Dupuytren contracture. pt states she has had the dupuytren for some time now- states in remote past she had bilateral CMC arthroplasties completed due to OA of bilater CMC joints. She arrives with bilateral CMC push thumb braces. pt states she wears them most of the time with cleaning, shopping tasks. 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 Jerrod - Quick DASH-Disab of Arm,Shoulder& Hand Quick DASH Score: 27.2725 - Goals Goal:: Pt will demo a increase in right cross enterprise integrator strength by 10# to increase ind with opening jar lids by D/C. Goal:: pt will report no pain greater than 1/10 with use of right hand with ADLS and IADLs by d/c Goal:: Pt will demo understanding of joint protection and ergonomics when performing BADLs and IADLs by d/c. Pt will demo understanding of adaptive Equipment use to decrease stress on joints to allow pt to perform BADSL and IADLS at KAMRYN level. - Rehabilitation General Assessment: Pt demo with inititation of right MF Duyuptrens contracture of right MF, noting at MCP ext -10* limitation- pt states she feels a pulling sensation that can be 2/10 with use as washing off counter tops ect. PT would benefit from skilled OT services 1-2x week for 3 weeks. Today pt was ed. on Dupuytrens contracture of right hand, pt demo understanding of her dx. Therapist ed pt on PROM and AROM ex. to decrease pts feeling of tightness/stiffness. PT ed, on use of ad. eq. with ADLs to decrease stress on joint of the hand to increase ind with ADLS and IADLS. Rehabilitation Potential: Good - Anticipated Interventions Anticipated Interventions: A/AAROM/PROM, Triggerpoint Release, Modalities, Orthoses, Joint Protection/Energy Conservation, Ergonomic Education, Education re Diagnosis - Visit Plan Frequency: 1-2x /Week Duration: 3 Weeks TEXT: Thank you for the opportunity to evaluate your patient. For Medicare and Medicare HMO plans, please review the plan of care and approve it. It will need to be FAXED BACK to us at [phone] for Medicare purposes. Please let me know if there are questions or concerns regarding this plan of care. Physician Signature: Date:
--- NOTE | 2018-08-25 11:18 | HP.OT.NRP ---
HP - Discharge Summary - Patient Information POP HORNER was seen in my office for initial evaluation on 05/13/18. The following Plan of Care was established for this patient: Initial Frequency: 1-2x /Week Initial Duration: 3 Weeks - Anticipated Interventions Anticipated Interventions: A/AAROM/PROM, Triggerpoint Release, Modalities, Orthoses, Joint Protection/Energy Conservation, Ergonomic Education, Education re Diagnosis This patient was last seen in our office 05/26/18. Pertinent comments regarding their Occupational therapy will appear below: pt seen for 3 visits and stated her hand was feeling better- pt has not scheduled more apts and due to time lapse in services pt d/c at this time. At this point I will be discontinuing this patient from occupational therapy. I would be happy to see this patient again in the future if found appropriate by the physician. Thank you! Vivi Graham, OTR/L, CHT
== END 2018-05-26 19:00 | disposition home or self-care (01) ==
LOC: OT 10:00
PROVIDERS: Family Provider Family Medicine; PCP Family Medicine; Referring Provider Family Medicine; Visit Provider Family Medicine
DX: M72.0 Palmar fascial fibromatosis [Dupuytren] (principal)
CPT/HCPCS: 97035; 97140; 97166

== ENCOUNTER → 2018-10-15 | Outpatient (CLI) | payer MEDICARE, OTHER, SELFPAY ==
[2018-10-15 14:10] LABS: Absolute Neutrophil Count 1.3 X10^3/uL (2.0-7.7); Basophil# 0.07 X10^3/uL; Eosinophil# 0.13 X10^3/uL; Eosinophils% 3.6 % (0-5); Hematocrit 46.2 % (37-47); Hemoglobin 15.2 g/dL (12.0-15.0); Lymphocyte % 41.9 % (19-41); Mean Corp Hgb Conc 32.9 g/dL (32-36); Mean Corpuscular Hgb 32.7 pg (27.0-32.0); Mean Corpuscular Volume 99.4 fL (81-99); Mean Platelet Vol. 11.1 fl (6.2-12.0); Monocyte# 0.57 X10^3/uL; Monocyte% 15.9 % (0-10); NRBC Flagged by Analyzer 0 % (0-5); Neutrophil % 36.3 % (47-70); Platelet Count 213 K/mm3 (150-450); RBC Distribution Width CV 12.9 % (11.6-14.6); Red Blood Count 4.65 M/mm3 (4.2-5.4); White Blood Count 3.6 K/mm3 (4.4-11.0)
[2018-10-15 14:39] LABS: AST(SGOT) 23 U/L (15-37); Alanine Aminotransfer ALT/SGPT 25 U/L (13-56); Albumin, Serum 3.4 g/dL (3.2-5.0); Alkaline Phosphatase 91 U/L (45-117); Bilirubin, Direct 0.21 mg/dL (0.00-0.30); Globulin 3.7 g/dL (2.2-4.2); Protein, Total 7.1 g/dL (6.4-8.2); T4 Free Direct 1.29 ng/dL (0.76-1.46); Thyroid Stim Hormone (TSH) 0.22 uIU/mL (0.358-3.74)
== END | disposition home or self-care (01) ==
LOC: MFPLAB 12:03
PROVIDERS: Family Provider Family Medicine; PCP Family Medicine; Referring Provider Family Medicine; Visit Provider Family Medicine
DX: E03.9 Hypothyroidism, unspecified (principal); E80.6 Other disorders of bilirubin metabolism; D75.1 Secondary polycythemia
CPT/HCPCS: 36415; 80076; 84439; 84443; 85025

== ENCOUNTER → 2018-10-16 | Outpatient (CLI) | payer MEDICARE, OTHER, SELFPAY ==
[2018-10-16 12:50] LABS: Vitamin B12 371 pg/mL (211-911); Vitamin D,25 Hydroxy 30.5 ng/mL (29.95-100.01)
[2018-10-16 13:05] LABS: Ferritin 121 ng/mL (8-252); Iron 100 ug/dL (50-170); Iron Binding Capacity,Total 297 ug/dL (250-450); PERCENT IRON SATURATION 33.7 % (15.0-55.0)
[2018-10-17 12:31] LABS: Transferrin 231 mg/dL (200-370)
== END | disposition home or self-care (01) ==
LOC: MFPLAB 10:44
PROVIDERS: Family Provider Family Medicine; PCP Family Medicine; Referring Provider Family Medicine; Visit Provider Family Medicine
DX: R53.83 Other fatigue (principal); D75.1 Secondary polycythemia
CPT/HCPCS: 36415; 82306; 82607; 82728; 83540; 83550; 84466

== ENCOUNTER → 2018-12-11 | Outpatient (CLI) | payer MEDICARE, OTHER, SELFPAY ==
[2018-12-11 17:51] LABS: Anion Gap 4 (5-15); BUN 12 mg/dL (7-18); BUN/Creat Ratio 14.4 RATIO (10-20); Calcium,Total 9.3 mg/dL (8.5-10.1); Chloride 108 mmol/L (98-107); Creatinine, Serum 0.84 mg/dL (0.55-1.02); EST Glomerular Filtration Rate 70 mL/min (>60); Est Glom Filt Rate - Afr Amer 85 mL/min (>60); Glucose 93 mg/dL (74-106); Magnesium 2.4 mg/dL (1.6-2.6); Potassium 4.6 mmol/L (3.5-5.1); Sodium Level 141 mmol/L (136-145); T4 Free Direct 0.98 ng/dL (0.76-1.46)
== END | disposition home or self-care (01) ==
LOC: MFPLAB 16:07
PROVIDERS: Family Provider Family Medicine; PCP Family Medicine; Visit Provider Nurse Practitioner Adult Health
DX: I49.1 Atrial premature depolarization (principal)
CPT/HCPCS: 36415; 80048; 83735; 84439

== ENCOUNTER → 2019-01-15 11:23 | Outpatient (CLI) | payer MEDICARE, OTHER, SELFPAY ==
[2019-01-15 12:45] LABS: T4 Free Direct 1.21 ng/dL (0.76-1.46); Thyroid Stim Hormone (TSH) 2.21 uIU/mL (0.358-3.74)
== END ==
PROVIDERS: Family Provider Family Medicine; PCP Family Medicine; Referring Provider Family Medicine; Visit Provider Family Medicine
DX: E03.9 Hypothyroidism, unspecified (principal)
CPT/HCPCS: 36415; 84439; 84443

== ENCOUNTER → 2019-04-16 | Outpatient (CLI) | payer MEDICARE, OTHER, SELFPAY ==
[2019-04-06 16:00] VITALS: BMI 28.0
--- NOTE | 2019-04-16 09:56 | CDU_ITS ---
Reason For Study: carotid stenosis Rt. Velocities/BP Lt. Velocities/BP Prox CCA 59.7/10.2 cm/sec. Prox CCA 60.7/8.8 cm/sec. Mid CCA 55.3/12.4 cm/sec. Mid CCA 76.8/15.4 cm/sec. Dist CCA 48.7/10.2 cm/sec. Dist CCA 64.5/11.6 cm/sec. Prox ICA 36.2/10.7 cm/sec. Prox ICA 67.3/20.1 cm/sec. Mid ICA 49.4/14.5 cm/sec. Mid ICA 51.3/14.5 cm/sec. Dist ICA 89.3/23.4 cm/sec. Dist ICA 61.7/17.3 cm/sec. Rt. ICA/CCA = 1.6. Lt. ICA/CCA = .9. Prox ECA 65.1/4.7 cm/sec. Prox ECA 74.0/7.8 cm/sec. Rt. Vert. 36.2/9.7 cm/sec. Lt. Vert. 42.8/10.7 cm/sec. Right Extracranial There is intimal thickening but no significant atherosclerotic plaque noted in the right common carotid artery. There is intimal thickening but no significant atherosclerotic plaque noted in the right internal carotid artery. There is intimal thickening but no significant atherosclerotic plaque noted in the right external carotid artery. Antegrade flow is noted in the right vertebral artery. Left Extracranial There is homogeneous, smooth atherosclerotic plaque noted in the left common carotid artery. There is heterogeneous, irregular atherosclerotic plaque noted in the left internal carotid artery. There is heterogeneous, irregular atherosclerotic plaque noted in the left external carotid artery. Antegrade flow is noted in the left vertebral artery. Procedure Carotid Duplex 35989. The exam was diagnostic. Exam performed in department. Interpretation Summary Mild (<50%) stenosis right extracranial internal carotid. Mild (<50%) stenosis left extracranial internal carotid. Flow within the vertebral arteries is antegrade bilaterally. Ordering Physician: Chi Sánchez Performed By: Khalif Adan RVT
== END | disposition home or self-care (01) ==
PROVIDERS: PCP Family Medicine; Referring Provider Internal Medicine Cardiovascular Disease; Visit Provider Internal Medicine Cardiovascular Disease
DX: I77.9 Disorder of arteries and arterioles, unspecified (principal); I65.23 Occlusion and stenosis of bilateral carotid arteries
CPT/HCPCS: 93880

== ENCOUNTER → 2019-07-21 | Outpatient (CLI) | payer MEDICARE, OTHER, SELFPAY ==
[2019-04-06 16:00] VITALS: BMI 28.0
[2019-07-21 12:15] LABS: Absolute Lymphocyte Count 1.12 X10^3/uL (0.83-4.51); Absolute Neutrophil Count 0.7 X10^3/uL (2.0-7.7); Basophil# 0.05 X10^3/uL; Basophil% 2.1 % (0-1); Eosinophil# 0.14 X10^3/uL; Hematocrit 42.3 % (37-47); Hemoglobin 14.3 g/dL (12.0-15.0); Lymphocyte # 1.12 X10^3/ul (4.0); Lymphocyte % 48.1 % (19-41); Mean Corp Hgb Conc 33.8 g/dL (32-36); Mean Corpuscular Volume 100.5 fL (81-99); Mean Platelet Vol. 10.7 fl (6.2-12.0); Monocyte# 0.31 X10^3/uL; Monocyte% 13.3 % (0-10); NRBC Flagged by Analyzer 0 % (0-5); Neutrophil # 0.71 X10^3/uL (2.7-7.7); Neutrophil % 30.5 % (47-70); POSITIVE DIFFERENTIAL YES; Platelet Count 185 K/mm3 (150-450); RBC Distribution Width CV 13.2 % (11.6-14.6); RBC Distribution Width SD 48.4 fl (35.1-43.9); Red Blood Count 4.21 M/mm3 (4.2-5.4); White Blood Count 2.3 K/mm3 (4.4-11.0)
[2019-07-21 12:18] LABS: Differential Indicated SCAN CRITERIA MET
[2019-07-21 12:43] LABS: Vitamin D,25 Hydroxy 31.6 ng/mL
[2019-07-21 12:49] LABS: AST(SGOT) 16 U/L (15-37); Alanine Aminotransfer ALT/SGPT 13 U/L (13-56); Albumin, Serum 3.6 g/dL (3.2-5.0); Alkaline Phosphatase 83 U/L (45-117); Anion Gap 6 (5-15); BUN 7 mg/dL (7-18); BUN/Creat Ratio 10.2 RATIO (10-20); Chloride 109 mmol/L (98-107); Creatinine, Serum 0.69 mg/dL (0.55-1.02); EST Glomerular Filtration Rate 88 mL/min (>60); Est Glom Filt Rate - Afr Amer 106 mL/min (>60); Globulin 3.5 g/dL (2.2-4.2); Glucose 78 mg/dL (74-106); Magnesium 2.2 mg/dL (1.6-2.6); Phosphorus 3.4 mg/dL (2.5-4.9); Potassium 3.9 mmol/L (3.5-5.1); Protein, Total 7.1 g/dL (6.4-8.2); Sodium Level 142 mmol/L (136-145); T4 Free Direct 1.02 ng/dL (0.76-1.46); Thyroid Stim Hormone (TSH) 5.26 uIU/mL (0.358-3.74)
== END | disposition home or self-care (01) ==
PROVIDERS: PCP Family Medicine; Referring Provider Family Medicine; Visit Provider Family Medicine
DX: E03.9 Hypothyroidism, unspecified (principal); I49.3 Ventricular premature depolarization; S22.080A Wedge compression fracture of T11-T12 vertebra, initial encounter for closed fracture
CPT/HCPCS: 36415; 80053; 82306; 83735; 84100; 84439; 84443; 85025

== ENCOUNTER → 2019-07-23 10:31 | Outpatient (CLI) | payer MEDICARE, OTHER, SELFPAY ==
[2019-04-06 16:00] VITALS: BMI 28.0
--- NOTE | 2019-07-23 10:37 | RAD_ITS ---
STUDY: X-RAY - RIGHT SHOULDER REASON FOR EXAM: Female, 79 years old. PAIN IN SHOULDER ON PALPATION BY PHYSICIAN -- HX OF FALL IN 2009 AND FRACTURED IN 4 PLACES- NO SURGERY, JUST THERAPY TECHNIQUE: 4 view(s) of the shoulder. COMPARISON: None. FINDINGS: The right shoulder is intact and located with chronic healed deformity of the proximal humerus due to prior fracture. AC joint is intact and located. There are surgical clips in the right axilla. Right lung apex is clear. Mineralization is decreased. RAD/Shoulder min 2 Views IMPRESSION: No acute abdomen. Chronic stable findings. Electronically Signed: Pio Brown, at 21:23 EDT Tel , Service support ,
[2019-07-23 15:40] LABS: AST(SGOT) 22 U/L (15-37); Alanine Aminotransfer ALT/SGPT 16 U/L (13-56); Albumin, Serum 3.9 g/dL (3.2-5.0); Alkaline Phosphatase 89 U/L (45-117); Bilirubin, Direct 0.33 mg/dL (0.00-0.30); Globulin 3.6 g/dL (2.2-4.2); Protein, Total 7.5 g/dL (6.4-8.2)
[2019-07-24 15:32] LABS: Absolute Lymphocyte Count 1.26 X10^3/uL (0.83-4.51); Absolute Neutrophil Count 1.2 X10^3/uL (2.0-7.7); Basophil# 0.06 X10^3/uL; Eosinophil# 0.11 X10^3/uL; Eosinophils% 3.6 % (0-5); Hematocrit 44.8 % (37-47); Hemoglobin 14.7 g/dL (12.0-15.0); Lymphocyte # 1.26 X10^3/ul (4.0); Lymphocyte % 41.4 % (19-41); Mean Corp Hgb Conc 32.8 g/dL (32-36); Mean Corpuscular Hgb 33.6 pg (27.0-32.0); Mean Corpuscular Volume 102.5 fL (81-99); Mean Platelet Vol. 11.8 fl (6.2-12.0); Monocyte# 0.37 X10^3/uL; Monocyte% 12.2 % (0-10); NRBC Flagged by Analyzer 0 % (0-5); Neutrophil # 1.24 X10^3/uL (2.7-7.7); Neutrophil % 40.8 % (47-70); Platelet Count 193 K/mm3 (150-450); RBC Distribution Width CV 13.2 % (11.6-14.6); RBC Distribution Width SD 50.3 fl (35.1-43.9); Red Blood Count 4.37 M/mm3 (4.2-5.4)
[2019-07-27 12:11] LABS: Pathologist Review Reviewed
== END ==
PROVIDERS: PCP Family Medicine; Referring Provider Family Medicine; Visit Provider Family Medicine
DX: M25.511 Pain in right shoulder (principal); D72.819 Decreased white blood cell count, unspecified; E50 Vitamin A deficiency
CPT/HCPCS: 36415; 73030; 80076; 85025

== ENCOUNTER → 2019-09-01 | Outpatient (CLI) | payer MEDICARE, OTHER, SELFPAY ==
[2019-08-26 13:35] VITALS: BMI 28.9
[2019-08-26 16:52] VITALS: BMI 29.7
--- NOTE | 2019-09-01 08:08 | RAD_ITS ---
STUDY: AIR-CONTRAST esophagram and upper GI study REASON FOR EXAM: Female, 79 years old. DYSPHAGIA, VIT B 12 DEFICIENCY, HX OF GERD. PATIENT STATES FOODS GET STUCK AND SHE HAS TO COUGH TO GET IT UP. PATIENT STATES and quot; FEELS LIKE SHE HAS PHLEGM IN HER THROAT EVEN WHEN SHE IS NOT EATING OR DRINKING AND SHE HAS TO CLEAR HER THROAT OR COUGH TO GET IT UP. HX OF HIATAL HERNIA REPAIR AND APPENDECTOMY. HX OF RIGHT BREAST CA WITH LUMPECTOMY. RADIATION DOSAGE (If Supplied By Facility): CTDIvol = ( ) mGy, DLP = ( ) mGycm. Individualized dose optimization techniques were used for this CT.? FLUOROSCOPY TIME (if supplied): ( 1 minute 40 seconds TECHNIQUE: Air-contrast COMPARISON: None. FINDINGS: Swallowing was initiated normally. No nasopharyngeal reflux or aspiration. No Zenker''s diverticulum noted on the lateral view. Abnormal tertiary contractions noted throughout the mid and distal esophagus with evidence of intraesophageal reflux. Patient has had a history of hiatal hernia repair. The repair is in satisfactory appearance. There is no significant GE reflux or extravasation of contrast outside the lumen of the GE junction. Initially, the patient has cardiomegaly which is displacing the normal course of the esophagus posteriorly, and creates an angle that is causing some delay in emptying of the esophagus. Stomach distends normally without evidence of rugal fold enlargement or mucosal ulceration. The duodenal C-loop is not elongated and demonstrates a normal mucosal pattern. 13 mm barium pill passed through the esophagus without difficulty. RAD/Upper GI w/BA Swallow IMPRESSION: Presbyesophagus with intraesophageal reflux. Cardiomegaly with posterior deviation of the normal course of the esophagus creating an angle that caused pooling of contrast in the distal esophagus and contributed to the intraesophageal reflux No suspicious mucosal lesion or mass. Electronically Signed: Kahlil Grigsby MD at 9:33 EDT , Service support ,
== END | disposition home or self-care (01) ==
LOC: RAD 08:03
PROVIDERS: PCP Family Medicine; Referring Provider Surgery; Visit Provider Surgery
DX: K21.9 Gastro-esophageal reflux disease without esophagitis (principal); R13.10 Dysphagia, unspecified; E53.8 Deficiency of other specified B group vitamins
CPT/HCPCS: 74246

== ENCOUNTER → 2019-09-03 | Outpatient (CLI) | payer MEDICARE, OTHER, SELFPAY ==
[2019-08-26 16:52] VITALS: BMI 29.7
--- NOTE | 2019-09-03 10:39 | RAD_ITS ---
STUDY: X-RAY CHEST REASON FOR EXAM: Female, 79 years old. Dysphagia, choking episode TECHNIQUE: PA and lateral views of the chest. COMPARISON: 2017 FINDINGS: Lungs are hyperexpanded with chronic interstitial changes, no superimposed acute pulmonary process. There is no demonstrated pleural abnormality. Normal size heart. Normal mediastinum and andreas. Normal visualized pulmonary arteries. There is atherosclerotic calcification of the aortic arch with tortuosity. There are diffuse degenerative changes of the visualized thoracic spine. There is degenerative osteoarthritis of the bilateral shoulders. There is no demonstrated abnormality of the visualized soft tissue structures of the upper abdomen. RAD/Chest PA and Lateral IMPRESSION: Hyperexpanded lungs with chronic interstitial changes, no superimposed acute pulmonary process Electronically Signed: Kahlil Grigsby MD at 11:00 EDT , Service support ,
== END | disposition home or self-care (01) ==
LOC: RAD 10:38
PROVIDERS: PCP Family Medicine; Referring Provider Physician Assistant Medical; Visit Provider Physician Assistant Medical
DX: I51.7 Cardiomegaly (principal)
CPT/HCPCS: 71046

== ENCOUNTER → 2019-09-08 | Outpatient (CLI) | payer MEDICARE, OTHER, SELFPAY ==
[2019-08-26 16:52] VITALS: BMI 29.7
--- NOTE | 2019-09-08 08:47 | ECHOD_ITS ---
Reason For Study: CHEST PAIN Procedure This was a 2D Doppler, Color Flow transthoracic echocardiogram. The study was technically difficult. Exam performed in department. Left Ventricle Normal LV size. Left ventricular systolic function is normal. The estimated ejection fraction is 60 %. No regional wall motion abnormalities noted. Right Ventricle Normal RV size. Normal systolic function. Atria The left atrium is mildly enlarged. Normal right atrium. No doppler evidence for ASD. Mitral Valve There is no mitral annular calcification. Normal mitral valve. Mild (1+) mitral valve insufficiency. Tricuspid Valve Normal tricuspid valve. Mild tricuspid valve insufficiency. Right ventricular systolic pressure estimated to be 33 mmHg. Aortic Valve Trisinus/trileaflet aortic valve. Mild focal aortic valve calcification. Pulmonic Valve The pulmonic valve is not well visualized. Trivial pulmonic valve insufficiency. Great Vessels Normal sized aortic root. Pericardium/Pleural No pericardial effusion. MMode/2D Measurements & Calculations LVIDd: 4.7 cm IVSd: 1.0 cm Ao root diam: 3.3 cm LVIDs: 3.0 cm LVPWd: 1.0 cm RVDd: 3.5 cm FS: 36.8 % LAV(MOD-bp): 58.3 ml LA A4 area: 19.7 cm2 LA dimension(2D): 3.8 cm LAV(MOD-bp) Indexed: 31.8 ml/m2 LAV(MOD-sp2): 58.6 ml LAV(MOD-sp4): 54.9 ml RA A4 area: 15.1 cm2 Time Measurements MV dec time: 0.16 sec Doppler Measurements & Calculations MV E max luis: 100.2 cm/sec Lat Peak E' Luis: 9.9 cm/sec Med Peak E' Luis: 7.8 cm/sec MV A max luis: 76.4 cm/sec E/E' lat: 10.1 E/E' med: 12.8 MV E/A: 1.3 Ao V2 max: 104.0 cm/sec LV V1 max: 86.2 cm/sec PA V2 max: 50.7 cm/sec Ao max P.3 mmHg LV V1 max P.0 mmHg TR max luis: 272.4 cm/sec TR max P.7 mmHg Interpretation Summary The study was technically difficult. Left ventricular systolic function is normal. The estimated ejection fraction is 60 %. The left atrium is mildly enlarged. Mild (1+) mitral valve insufficiency. Mild tricuspid valve insufficiency. Mild focal aortic valve calcification. Trivial pulmonic valve insufficiency. Right ventricular systolic pressure estimated to be 33 mmHg. Transmitral diastolic flow velocities suggest diastolic dysfunction (pseudonormal pattern). Ordering Physician: Vivi Diaz Referring Physician: Chavo Burton Performed By: Ashley Martin RVT, RDCS and Student
== END | disposition home or self-care (01) ==
LOC: CVS 08:47
PROVIDERS: PCP Family Medicine; Referring Provider Physician Assistant Medical; Visit Provider Physician Assistant Medical
DX: I51.7 Cardiomegaly (principal); R07.9 Chest pain, unspecified
CPT/HCPCS: 93306

== ENCOUNTER 2019-09-28 07:16 | Day surgery (SDC) | payer MEDICARE, OTHER, SELFPAY ==
[2019-08-26 16:52] VITALS: BMI 29.7
[2019-09-28 07:34] VITALS: BP 146/73; PULSE 62; RESP 16; TEMP 36.8; O2SAT 100
[2019-09-28] MEDS: Lactated Ringers 1,000 ML 100 ML IV (07:43)
--- NOTE | 2019-09-28 07:54 | PCM.HP.BLA ---
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 Required: No Accompanied by: Is patient in pain?: No Allergies adhesive tape Adverse Reaction (Verified 08/26/19 13:37) BLISTERS ciprofloxacin [From Cipro] Adverse Reaction (Verified 08/26/19 13:37) SEIZURE ciprofloxacin HCl [From Cipro] Adverse Reaction (Verified 08/26/19 13:37) SEIZURE lansoprazole Adverse Reaction (Verified 08/26/19 13:37) Nausea/Vom/Diarrhea pantoprazole Adverse Reaction (Verified 08/26/19 13:37) Nausea/Vom/Diarrhea ranitidine Adverse Reaction (Verified 08/26/19 13:37) Nausea/Vom/Diarrhea sertraline HCl [From Zoloft] Adverse Reaction (Verified 08/26/19 13:37) DEPRESSION Medications metoprolol succinate 25 mg tablet,extended release 24 hr 25 mg PO DAILY 01/27/19 [History Confirmed 08/26/19] apixaban 5 mg tablet 5 mg PO BID #60 tab 03/20/19 [Rx Confirmed 08/26/19] cyanocobalamin (vitamin B-12) 1,000 mcg/mL injection solution 100 mcg IM QMONTH 08/26/19 [History Confirmed 08/26/19] fluticasone propionate 50 mcg/actuation nasal spray,suspension INTRANASAL 08/26/19 [History Confirmed 08/26/19] levothyroxine 75 mcg tablet 88 mcg PO DAILY tab 08/26/19 [History Confirmed 08/26/19] PFS Medical History (Updated 08/26/19 @ 16:[address] Bassem Mcgee MD) Dysphasia (Acute) Vitamin B12 deficiency (Acute) AVILA on CPAP (Chronic) Thoracic aorta atherosclerosis (Chronic) GERD (gastroesophageal reflux disease) (Chronic) Premature atrial contraction (Acute) Hypothyroidism (Chronic) Chest pain (Acute) Arthritis (Acute) Difficulty swallowing (Acute) Fatigue (Acute) Goiter (Acute) History of back problems (Acute) History of cancer of right breast (Acute) Hydronephrosis of right kidney (Acute) Rheumatoid arthritis (Acute) Vitamin B12 deficiency (Acute) Chronic UTI (Chronic) Malignant neoplasm of right breast (Chronic) Cystocele (Resolved) Surgical History (Updated 08/26/19 @ 13:35 by Ashley Lau) History of left hip replacement (Acute) History of repair of hiatal hernia (Acute) History of abdominal surgery (Resolved) History of appendectomy (Resolved) History of arthroplasty of right hip (Resolved) History of bilateral cataract extraction (Resolved) History of foot surgery (Resolved) History of partial mastectomy of right breast (Resolved) History of sinus surgery (Resolved) History of thumb surgery (Resolved) Social History (Updated 08/26/19 @ 16:[address] Bassem Mcgee MD) Smoking Status: Never smoker alcohol intake: current details: occasional substance use type: does not use caffeine: No HPI HPI HPI: POP HORNER, is a 79 F who presents to the office today for surgical consultation regarding B12 deficiency. The patient is referred by Dr. Chi Armenta and a written copy of my surgical consult recommendations will return to him as well as forwarded on to the patient's primary care physician Dr Chavo Burton. The patient is complaining of some more recent onset of difficulty swallowing food with occasionally food getting stuck. I have assisted her March 21, 2016 because of intractable gastroesophageal reflux disease with a laparoscopic Behzad fundoplication. I used a 46 [place] bougie. Did a floppy wrap. Technically I was pleased with that. The patient states that post procedure she required an intervention for dilatation but that was immediately thereafter. She has not had any intervention for 3 years. She does carry a history of breast cancer but is not felt to have current active disease. She has been determined to be vitamin B12 deficient. A request has been made by Dr. andrew to proceed with an upper endoscopy with biopsy to determine if chronic gastritis could be an etiology. The patient however is more over interested in identifying whether her wrap is intact. It is of additional note that the patient has new onset atrial fibrillation. She is on Eliquis therapy. She also has sleep apnea and now is on CPAP therapy. HPI HPI HPI: POP HORNER, is a 79 F who presents to the office today for ROS General General: Yes weight change, fatigue and breast cancer; no appetite, colon cancer or weakness HEENT HEENT: Yes difficulty swallowing and eye surgery; no eye injury, swollen glands or hoarseness Endo Endocrine: Yes thyroid disease; no diabetes mellitus, thyroid cancer, Hair loss, heat intolerance or cold intolerance Skin Skin: No rash or changing moles Breast Breast: No left breast lump, right breast lump, nipple discharge, breast pain, abnormal mammogram, abnormal US or breast enlargement Musc Musculoskeletal: Yes back problems, arthritis and rheumatoid arthritis; no gout or joint pain Cardio Cardiovascular: Yes atrial fibrillation; no murmur, pacemaker, heart disease, high blood pressure, heart attack, heart stent, palpitations, shortness of breat with exertion or chest pain Psych Psychiatric: No depression, anxiety or hearing voices Resp Respiratory: No shortness of breath, Yes sleep apnea, No cough, No COPD, No asthma, No emphysema, No wheezing Gastro Gastrointestinal: No abdominal pain, No nausea or vomiting, No diarrhea, No constipation, No blood in stool, No acid reflux, No hemorrhoids, No ulcers, No gallbladder problem, No black,tarry stools Sudeep Hematologic: Yes blood thinners, No blood disorders, No bleeding, No anemia, No blood clots Neuro Neurologic: No system reviewed and no additional complaints, except as docu, No as per HPI, No abnormal walking, No abnormal hearing, No abnormal movements, No abnormal speech, No behavioral changes, No burning sensations, No confusion, No seizure-like activity, No unsteadiness, No dizziness, No localized weakness, No frequent falls, No headache(s), No lack of coordination, No loss of vision, No memory loss, No numbness, No other visual disturbances, No radiating pain, No restless legs, No sensory deficit, No fainting, No tingling, No tremor(s), No weakness, No other Exam Const General: cooperative, comfortable HENMT Head: normal to inspection Chest Breast Palpation: No nipple discharge Resp Effort & Inspection: normal respiratory effort Auscultation: clear to auscultation bilaterally Cardio Heart Sounds: no murmurs Other: Regular rate irregular rhythm GI Palpation: soft, no hepatosplenomegaly Neuro Cognition: normal cognition Extrem General: no calf tenderness Psych Affect: normal affect Assessment & Plan Problems 1. Vitamin B12 deficiency E53.8 2. Gastroesophageal reflux disease with esophagitis K21.0 3. Dysphasia R47.02 Plan I recommended the patient that we obtain a contrast upper GI study to assess her swallowing function anatomy. Looking for possible recurrent Schatzki ring or possible slipped Behzad fundoplication. Then I propose for her a esophagogastroduodenoscopy with anticipated pascal biopsy. She has had an opportunity to ask and have questions answered. She is very much aware of the Covid-19 pandemic. She is aware that the [facility] is reporting a low local incidence. We will schedule and proceed at her discretion. I very much appreciate the kind opportunity of assisting with her surgical care. Cc: Dr. Chi Armenta and Dr Chavo Mcgee M.D., F.A.C.S. Orders Orders: Upper GI w/BA Swallow Today E53.8, K21.9, R13.10 Coding Level of Care Code 38031 Diagnoses Vitamin B12 deficiency E53.8 Gastroesophageal reflux disease with esophagitis K21.0 ??Esophagitis presence: with esophagitis Dysphasia R47.02 Patient had an upper GI barium study showing some presbyesophagus with intraesophageal reflux. There was cardiac enlargement. She did get cardiology consultation but was not felt to have significant disease. She presents now to evaluate for possible reflux or Schatzki ring or slipped Behzad. Procedure Criteria Procedure Type: Elective COVID Risk Discussion: The surgeon/proceduralist and patient have discussed in detail the risk of exposure to and/or potential harm posed by the COVID-19 virus with having a surgery/procedure at this time versus the risk of delaying the surgery/procedure. It is not possible to know either the risk of delaying the surgery or procedure or chance of getting an infection with perfect accuracy, but a joint decision was made between the patient and the surgeon/proceduralist to proceed at this time with the scheduled surgery/procedure as indicated on the consent form.
--- NOTE | 2019-09-28 08:15 | IMM_PTH ---
PATIENT: POP HORNER LOC: EN U#:[id number] AGE/SX: 79/F ROOM: RE09/28/[address]: Dr. Bassem Mcgee MD : 1940 BED: DIS: 09/28/2019 SPEC #: [id number] RECD: 09/28/19 13:03 STATUS: CHAR REMelida #: [id number] ABHISHEK: 09/28/19 08:[address]: Bassem Mcgee DEPT: IMMUNOHISTOCHEMISTRY RECD BY: Milvia Liu ENTERED: 09/28/19 13:04 SP TYPE: IMMUNO OTHR DR: Dr. Chavo Burton MD Tissues: B - Stomach, NOS Procedures: H Pylori (initial) PHYSICIAN & INSTITUTION [place] [id number] SPECIMEN INFORMATION: Tissue Source: B - Antrum biopsy Clinical Info: GERD, dysphasia, B12 deficiency Specimen Number: [id number] CPT code: 07719 METHODOLOGY: Deparaffinized sections of prefer/formalin-fixed tissue or PAP/DQ stained slides are incubated with monoclonal/polyclonal antibodies/oligonucleotide probes. Localization is made via biotin free immunoperoxidase method. Appropriate controls are performed and reacted as expected. Results on target cell population are indicated in the following table: RESULTS: ANTIBODY / CLONE RESULT Block B H Pylori (polyclonal) negative These tests were developed and their performance characteristics determined by [facility]. They may not have been cleared or approved by the U.S. Food and Drug Administration. The FDA has determined that such clearance or approval is not necessary. INTERPRETATION: B. Antrum biopsy: Negative for Helicobacter pylori organisms. SJ:digna 09/29/19
--- NOTE | 2019-09-28 08:15 | EGD_PTH ---
PATIENT: POP HORNER LOC: EN U#:[id number] AGE/SX: 79/F ROOM: RE09/28/[address]: Dr. Bassem Mcgee MD : 1940 BED: DIS: 09/28/2019 SPEC #: [id number] RECD: 09/28/19 10:42 STATUS: CHAR ROSALIO #: [id number] ABHISHEK: 09/28/19 08:[address]: Bassem Mcgee DEPT: SURGICAL PATHOLOGY RECD BY: Rolando Mohan ENTERED: 09/28/19 11:27 SP TYPE: EGD BIOPSY HUY DR: Dr. Chavo Burton MD Tissues: A - Duodenum, NOS B - Gastric mucous membrane C - Esophageal mucous membrane D - Esophageal mucous membrane Procedures: Surgery Specimen Level IV HEADER OPERATION: EGD ([facility] [place]) PRE-OP DIAGNOSIS: GERD, dysphasia, B12 deficiency TISSUE SUBMITTED: A - Duodenum biopsy, B - Antrum biopsy for histo and H. pylori, C - Distal esophagus biopsy, D - Mid esophagus biopsy MICROSCOPIC DIAGNOSIS A. Duodenum, biopsy: A fragment of duodenal mucosa with mild Homar gland hyperplasia and mild nonspecific chronic inflammation. B. Antrum, biopsy: Mild gastritis. See microscopic description and comment. C. Distal esophagus, biopsy: Fragments of squamous epithelium with minimal chronic inflammation. D. Mid esophagus, biopsy: Fragments of squamous epithelium, no pathologic diagnosis. SJ:digna 09/29/19 COMMENT B. The results of immunohistochemistry for Helicobacter pylori will be reported separately ([id number]). MICROSCOPIC DESCRIPTION Slides are reviewed. B. The specimen shows fragments of gastric mucosa with chronic inflammatory cell infiltrates in the lamina propria consisting of lymphocytes and plasma cells, consistent with mild chronic gastritis. GROSS DESCRIPTION A - Received in fixative is one container labeled with the patient's name and designated duodenum biopsy. The specimen consists of one irregular fragment of light hair soft tissue that measures 0.3 x 0.3 x 0.1 cm. The specimen is totally submitted in one cassette. B - Received in fixative is one container labeled with the patient's name and designated antrum biopsy. The specimen consists of one irregular fragment of light hair soft tissue that measures 0.3 x 0.3 x 0.1 cm. The specimen is totally submitted in one cassette. C - Received in fixative is one container labeled with the patient's name and designated distal esophagus biopsy. The specimen consists of multiple irregular fragments of light hair soft tissue that in aggregate measure 1.2 x 0.5 x 0.1 cm. The specimen is totally submitted in one cassette. D - Received in fixative is one container labeled with the patient's name and designated mid esophagus biopsy. The specimen consists of two irregular fragments of light hair soft tissue that in aggregate measure 0.5 x 0.3 x 0.1 cm. The specimen is totally submitted in one cassette. / SJ:rg 09/28/19 TC:3 CPT: 35909 x4
[2019-09-28 08:45] VITALS: BP 146/73; BP 148/77; PULSE 75; RESP 16; TEMP 37.1; O2SAT 97
--- NOTE | 2019-09-28 08:47 | OP.EGD_ITS ---
Patient Name: Yuliana Perry Procedure Date: 09/28/2019 8:21 AM Date of : 1940 Age: 79 Procedure: Upper GI endoscopy Indications: Dysphagia Providers: Bassem Mcgee MD Referring MD: Chavo Burton Medicines: See the Anesthesia note for documentation of the administered medications Complications: No immediate complications. Procedure: Pre-Anesthesia Assessment: - Prior to the procedure, a History and Physical was performed, and patient medications and allergies were reviewed. The patient's tolerance of previous anesthesia was also reviewed. The risks and benefits of the procedure and the sedation options and risks were discussed with the patient. All questions were answered, and informed consent was obtained. Prior Anticoagulants: The patient has taken no previous anticoagulant or antiplatelet agents. ASA Grade Assessment: II - A patient with mild systemic disease. After reviewing the risks and benefits, the patient was deemed in satisfactory condition to undergo the procedure. After obtaining informed consent, the endoscope was passed under direct vision. Throughout the procedure, the patient's blood pressure, pulse, and oxygen saturations were monitored continuously. The Endoscope was introduced through the mouth, and advanced to the second part of duodenum. The upper GI endoscopy was accomplished without difficulty. The patient tolerated the procedure well. Scope In: 8:33:30 AM Scope Out: 8:39:34 AM Total Procedure Duration Time 0 hours 6 minutes 4 seconds Findings: The middle third of the esophagus was normal. Biopsies were taken with a cold forceps for histology. The Z-line was variable and was found 40 cm from the incisors. Biopsies were taken with a cold forceps for histology. Evidence of a Toupet fundoplication was found in the gastric fundus. The wrap appeared intact. Diffuse mild inflammation characterized by erythema was found in the gastric antrum. Biopsies were taken with a cold forceps for histology. The examined duodenum was normal. Biopsies were taken with a cold forceps for histology. Impression: - Normal middle third of esophagus. Biopsied. - Z-line variable, 40 cm from the incisors. Biopsied. - A Toupet fundoplication was found. The wrap appears intact. - Chronic gastritis. Biopsied. - Normal examined duodenum. Biopsied. Recommendation: - Discharge patient to home. - Resume previous diet. - Continue present medications. - Telephone my office for pathology results in 1 week. Procedure Code(s): --- Professional --- 35543, Esophagogastroduodenoscopy, flexible, transoral; with biopsy, single or multiple Diagnosis Code(s): --- Professional --- K22.8, Other specified diseases of esophagus Z98.890, Other specified postprocedural states K29.50, Unspecified chronic gastritis without bleeding R13.10, Dysphagia, unspecified CPT copyright 2017 [employer]. All rights reserved. The codes documented in this report are preliminary and upon commercial litigation associate review may be revised to meet current compliance requirements. Bassem Mcgee MD 09/28/2019 8:47:02 AM This report has been signed electronically. Number of Addenda: 0 Note Initiated On: 09/28/2019 8:21 AM
--- NOTE | 2019-09-28 08:47 | OP.CCLET_ITS ---
09/28/2019 Chavo Burton [address] [place] [address] Re : Upper GI endoscopy procedure for Yuliana Perry Dear Dr. Burton This procedure was performed on Saturday, September 28, 2019. My impressions and recommendations are as follows: Impressions : - Normal middle third of esophagus. Biopsied. - Z-line variable, 40 cm from the incisors. Biopsied. - A Toupet fundoplication was found. The wrap appears intact. - Chronic gastritis. Biopsied. - Normal examined duodenum. Biopsied. Recommendations : - Discharge patient to home. - Resume previous diet. - Continue present medications. - Telephone my office for pathology results in 1 week. My findings are described in the full procedure note, which is enclosed. If I can be of further assistance, please feel free to contact me at Doctor phone number(s): Work: . Sincerely, Bassem Mcgee MD 09/28/2019 8:47:02 AM This report has been signed electronically.
[2019-09-28 08:50] VITALS: BP 134/83; BP 146/73; PULSE 74; RESP 16; O2SAT 98
[2019-09-28 08:55] VITALS: BP 134/72; BP 146/73; PULSE 70; RESP 16; O2SAT 99
[2019-09-28 09:00] VITALS: BP 131/85; BP 146/73; PULSE 62; RESP 16; TEMP 36.2; O2SAT 99
[2019-09-28 09:29] VITALS: BP 146/73
== END 2019-09-28 09:30 | disposition home or self-care (01) ==
LOC: EN 07:16 → AC 07:17
PROVIDERS: Anesthesiology; PCP Family Medicine; Referring Provider Family Medicine; Visit Provider Surgery
PROC: 0DJ08ZZ Inspection of Upper Intestinal Tract, Via Natural or Artificial Opening Endoscopic (ICD-10-PCS; CPT 43235; principal; 2019-09-28 08:10)
DX: K29.80 Duodenitis without bleeding (principal); K29.50 Unspecified chronic gastritis without bleeding; K22.8 Other specified diseases of esophagus; K21.0 Gastro-esophageal reflux disease with esophagitis; E53.8 Deficiency of other specified B group vitamins; G47.33 Obstructive sleep apnea (adult) (pediatric); E03.9 Hypothyroidism, unspecified; M06.9 Rheumatoid arthritis, unspecified; I48.91 Unspecified atrial fibrillation; Z85.3 Personal history of malignant neoplasm of breast; Z11.59 Encounter for screening for other viral diseases; Z79.02 Long term (current) use of antithrombotics/antiplatelets; Z79.899 Other long term (current) drug therapy; Z87.891 Personal history of nicotine dependence
CPT/HCPCS: 43239; 87635; 88305; 88342; 94799; G2023; J7120; U0003

== ENCOUNTER → 2019-10-21 | Outpatient (CLI) | payer MEDICARE, OTHER, SELFPAY ==
[2019-10-21 15:21] LABS: Absolute Lymphocyte Count 1.55 X10^3/uL (0.83-4.51); Absolute Neutrophil Count 1.7 X10^3/uL (2.0-7.7); Basophil# 0.05 X10^3/uL; Basophil% 1.3 % (0-1); Eosinophil# 0.13 X10^3/uL; Eosinophils% 3.3 % (0-5); Hematocrit 45.7 % (37-47); Lymphocyte # 1.55 X10^3/ul (4.0); Lymphocyte % 39.4 % (19-41); Mean Corp Hgb Conc 32.8 g/dL (32-36); Mean Corpuscular Hgb 32.5 pg (27.0-32.0); Mean Corpuscular Volume 99.1 fL (81-99); Mean Platelet Vol. 10.6 fl (6.2-12.0); Monocyte# 0.47 X10^3/uL; NRBC Flagged by Analyzer 0 % (0-5); Neutrophil # 1.72 X10^3/uL (2.7-7.7); Neutrophil % 43.7 % (47-70); Platelet Count 227 K/mm3 (150-450); RBC Distribution Width CV 12.4 % (11.6-14.6); RBC Distribution Width SD 45.7 fl (35.1-43.9); Red Blood Count 4.61 M/mm3 (4.2-5.4); White Blood Count 3.9 K/mm3 (4.4-11.0)
[2019-10-21 16:01] LABS: ALB/GLOB Ratio 1.1 RATIO (0.9-2.4); AST(SGOT) 21 U/L (15-37); Alanine Aminotransfer ALT/SGPT 15 U/L (13-56); Albumin, Serum 3.9 g/dL (3.2-5.0); Alkaline Phosphatase 97 U/L (45-117); Anion Gap 6 (5-15); BUN 8 mg/dL (7-18); BUN/Creat Ratio 12.5 RATIO (10-20); Calcium,Total 9.2 mg/dL (8.5-10.1); Chloride 109 mmol/L (98-107); Cholesterol 163 mg/dL (200); Creatinine, Serum 0.64 mg/dL (0.55-1.02); EST Glomerular Filtration Rate 95 mL/min (>60); Est Glom Filt Rate - Afr Amer 115 mL/min (>60); Globulin 3.6 g/dL (2.2-4.2); Glucose 86 mg/dL (74-106); High Density Lipoprotein 63 mg/dL; Magnesium 2.3 mg/dL (1.6-2.6); Potassium 3.8 mmol/L (3.5-5.1); Protein, Total 7.5 g/dL (6.4-8.2); Sodium Level 141 mmol/L (136-145); Thyroid Stim Hormone (TSH) 0.67 uIU/mL (0.358-3.74); Triglycerides 77 mg/dL; Very Low Density Lipoprotein 15 mg/dL (5-40)
== END | disposition home or self-care (01) ==
LOC: MTLAB 13:29
PROVIDERS: PCP Family Medicine; Referring Provider Family Medicine; Visit Provider Family Medicine
DX: D72.819 Decreased white blood cell count, unspecified (principal); E80.6 Other disorders of bilirubin metabolism; E03.9 Hypothyroidism, unspecified; I65.29 Occlusion and stenosis of unspecified carotid artery; I48.0 Paroxysmal atrial fibrillation
CPT/HCPCS: 36415; 80053; 80061; 82248; 83735; 84439; 84443; 85025

== ENCOUNTER → 2019-10-22 | Outpatient (CLI) | payer MEDICARE, OTHER, SELFPAY ==
[2019-10-22 18:40] LABS: Vitamin B12 784 pg/mL (211-911)
== END | disposition home or self-care (01) ==
LOC: MFPLAB 15:08
PROVIDERS: PCP Family Medicine; Referring Provider Family Medicine; Visit Provider Family Medicine
DX: I49.3 Ventricular premature depolarization (principal)
CPT/HCPCS: 36415; 82607

== ENCOUNTER → 2019-11-05 | Outpatient (CLI) | payer MEDICARE, OTHER, SELFPAY ==
--- NOTE | 2019-11-05 14:31 | SP.MBSS_ITS ---
Modified Barium Swallow - Patient Information Study Date: 11/05/19 Study Time: 13:35 Direct Billable Minutes: 123 Total Minutes procedure & reportin Diagnosis: dysphagia Referring Physician: Chaov Burton Reason for Referral: The patient was referred for a Modified Barium Swallow Study by her PCP to further assess oropharyngeal swallow function d/t reported sensation of food/pills sticking in her throat w/ excessive coughing required to eject the offending material. Patient previously underwent a laparoscopic Behzad fundoplication 03/21/2016 d/t intractable gastroesophageal reflux disease; the patient required intervention for dilation immediately afterwards but has not since required any additional intervention. This patient was seen by Dr. Mcgee on 09/28/2019 d/t recent onset of swallowing difficulty w/ reports of food occasionally getting stuck; upper GI was ordered to assess for recurrent Schatzki ring or possible slipped Behzad fundoplication w/ plan for an EDG w/ biopsy to be completed after upper GI. Upper GI completed 09/01/2019 which reported: Presbyesophagus with intraesophageal reflux. Cardiomegaly with posterior deviation of the normal course of the esophagus creating an angle that caused pooling of contrast in the distal esophagus and contributed to the intraesophageal reflux. No suspicious mucosal lesion or mass. Patient reports that she was subsequently referred by Dr. Mcgee to Dr. Cecil Arenas, Gastroenter[facility] for an appointment on 11/16/2019. Medical History: Dysphagia, Vitamin B12 deficiency, AVILA on CPAP, Thoracic aorta Atherosclerosis, GERD, Premature atrial contraction, Hypothyroidism, Chest pain, Arthritis, Fatigue, Goiter, Hx back pain, Hx R breast cancer, Hydronephrosis of R kidney, Rheumatoid arthritis, Chronic UTIs, Cystocele; Surgical Hx L hip replacement, repair of hiatal hernia, abdominal surgery, bilateral cataract extraction, partial R breast mastectomy, sinus surgery x 2, thumb surgery, foot surgery Current Diet Ordered: Regular/Thin - reports that she avoids meat/bread Dentition: WNL Mental Status: WNL Respiratory Status: Oxygenating on Room Air - Study Findings Consistencies: Thin Liquid, Pudding, Cookie - Penetration-Aspiration Scale Penetration-Aspiration Scale: OBJECTIVE ASSESSMENT OF SWALLOW FUNCTION (QUANTITATIVE ? PER TRIAL): PENETRATION / ASPIRATION SCALE (FULLER): 1 = does not enter airway 2 = enters airway/above vocal folds/ejected 3 = enters airway/above vocal folds/not ejected 4 = enters airway/contacts vocal folds/ejected 5 = enters airway/contacts vocal folds/not ejected 6 = enters airway/below vocal folds/ejected 7 = enters airway/below vocal folds/not ejected despite effort 8 = enters airway/below vocal folds/no effort - Penetration-Aspiration Scale Score Thin Liquid via teaspoon Result: 1= does not enter airway Thin Liquid via teaspoon Trial 2 Result: 1= does not enter airway Thin Liquid Result: 1= does not enter airway Comment: single sip from cup Thin Liquid Trial 2 Comment: single sip from cup, throat clearing post deglutition - pen/asp not identified under fluoroscopy Pudding Result: 1= does not enter airway Pudding Trial 2 Result: 1= does not enter airway Thin Liquid Trial 3 Comment: single sip from cup, throat clearing post deglutition - pen/asp not identified under fluoroscopy Thin Liquid via single sip from straw Result: 1= does not enter airway Thin Liquid via sequential sips from cup Result: 2= enter airway/above vocal folds/ejected Cookie Result: 1= does not enter airway Thin Liquid Trial 4 Result: 1= does not enter airway Comment: single sip from cup, throat clearing post deglutition - pen/asp not identified under fluoroscopy Thin Liquid via small single sip from cup Result: 1= does not enter airway - Oral Phase Labial Seal: No Labial Escape Tongue Control During Bolus Hold: Cohesive bolus between tongue to palatal seal Bolus Preparation/Mastication: Timely and efficient chewing and mashing Bolus Transport/Lingual Motion: Brisk tongue motion Oral Residue: Trace residue lining oral structures - Pharyngeal Phase Initiation of Pharyngeal Swallow: Bolus head at posterior angle of ramus at first hyoid excursion Soft Palate Elevation: No bolus between soft palate and pharyngeal wall Laryngeal Elevation: Comp. Superior move thyroid cart w/comp. apprx arytenoid cart-epig pet Anterior Hyoid Excursion: Partial anterior movement Epiglottic Movement: Partial inversion Laryngeal Vestibule Closure at Height of Swallow: Complete; no air/contrast in laryngeal vestibule Pharyngeal Stripping Wave: Present - diminished Pharyngoesophageal Segment Opening: Parital distension and partial duration; parital obstruction of flow Tongue Base Retraction: Narrow column of contrast between tongue base & post. pharyngeal wall Pharyngeal Residue: Collection of residue within or on pharyngeal structures - Esophageal Phase Esophageal Clearance: Esophageal retention - Treatment Strategies Effects of treatment strategies attemped:: Effortful swallow: somewhat effective to improve pharyngeal clearance Liquid wash: effective to facilitate improved pharyngeal to esophageal residue clearance - Diagnosis/Impression Diagnosis: mild pharyngeal phase dyspahgia Impression: Oral phase of swallow function was grossly WNL. Pharyngeal phase characterized by timely pharyngeal swallow onset. Adequate tongue base contact to the posterior pharyngeal wall. Sufficient thyroid cartilage/laryngeal elevation appreciated, although reduced anterior hyoid ex cursion noted resulting in impaired epiglottic inversion. Tip of epiglottis contacting the posterior pharyngeal wall w/out full inversion with all liquid bolus trials, resulting in contrast retention w/in the valleculae. Improved inversion w/ boluses of increased viscosity (pudding/cookie), although significant vallecular residue retention persisted across consistencies. Diminished pharyngeal stripping wave. Minimally reduced distention and duration of the PES w/ contrast retained w/in the pyriform sinuses post deglutition. The patient was acutely aware of when pharyngeal residue was retained w/ pudding/cookie and independently utilized multiple swallow to assist w/ clearance, although somewhat unsuccessfully. Use of a liquid wash was effective to facilitate partial clearance of residue from the pharynx into the esophagus. The patient was able to maintain adequate laryngeal vestibule closure w/ single bites/sips. Laryngeal vestibule penetration identified w/ sequential swallows of thin liquid via straw. Penetration undercoated the epiglottis, did not reach the vocal folds and cleared from the laryngeal vestibule entirely w/ swallow completion. Esophageal phase was marked by esophageal retention well below the PES during scan to assess clearance. The patient was noted to clear her throat frequently t/o this study. No aspiration was identified under fluoroscopy, but trace silent aspiration of pharyngeal residue that lined the aryepiglottic folds and pooled w/in the pyriform sinuses cannot be ruled out. Outpatient skilled speech-language intervention targeting pharyngeal phase dysphagia is recommended to reinforce recommendations for use of compensatory strategies and to implement a pharyngeal strengthening exercise program to facilitate improved anterior hyoid movement, epiglottic inversion, pharyngeal contraction and PES duration for improved pharyngeal bolus clerance. - Recommendations Diet: Mechanical Soft Textures, Thin Liquids Compensatory Strategies: Small Bites, Small Sips, Slow Rate, Alternate bites/solids and sips/liquids, Sitting upright, Remain sitting upright for 30 minutes after PO intake Need for Skilled Speech Therapy Services: Yes - Outpatient dysphagia intervention recommended Education Completed: 1. Described result of evaluation., 2. Pt understands evaluation & agrees with goals and treatment plan. - Status Active ST Patient: Active - Contact Information [facility] Speech Therapy:: Hanh Ontiveros M.A., CCC-BINDERY MACHINE SETTER [facility] Speech-Language Pathologist [email or web address] [phone]
== END | disposition home or self-care (01) ==
LOC: RAD 12:55
PROVIDERS: PCP Family Medicine; Referring Provider Family Medicine; Visit Provider Family Medicine
DX: R13.10 Dysphagia, unspecified (principal)
CPT/HCPCS: 74230

== ENCOUNTER → 2020-02-09 10:42 | Outpatient (CLI) | payer MEDICARE, OTHER, SELFPAY ==
[2020-02-09 09:46] VITALS: BMI 30.2
[2020-02-09 11:09] LABS: Absolute Lymphocyte Count 1.43 X10^3/uL (0.83-4.51); Absolute Neutrophil Count 1.7 X10^3/uL (2.0-7.7); Basophil# 0.06 X10^3/uL; Basophil% 1.6 % (0-1); Eosinophil# 0.14 X10^3/uL; Eosinophils% 3.7 % (0-5); Hematocrit 48.7 % (37-47); Hemoglobin 15.7 g/dL (12.0-15.0); Lymphocyte # 1.43 X10^3/ul (4.0); Lymphocyte % 37.4 % (19-41); Mean Corp Hgb Conc 32.2 g/dL (32-36); Mean Corpuscular Hgb 31.6 pg (27.0-32.0); Mean Platelet Vol. 9.9 fl (6.2-12.0); Monocyte# 0.46 X10^3/uL; NRBC Flagged by Analyzer 0 % (0-5); Neutrophil # 1.72 X10^3/uL (2.7-7.7); Platelet Count 202 K/mm3 (150-450); RBC Distribution Width CV 12.9 % (11.6-14.6); RBC Distribution Width SD 46.7 fl (35.1-43.9); Red Blood Count 4.97 M/mm3 (4.2-5.4); White Blood Count 3.8 K/mm3 (4.4-11.0)
[2020-02-09 11:29] LABS: Anion Gap 4 (5-15); BUN 8 mg/dL (7-18); BUN/Creat Ratio 10.2 RATIO (10-20); Calcium,Total 9.4 mg/dL (8.5-10.1); Chloride 109 mmol/L (98-107); Creatinine, Serum 0.79 mg/dL (0.55-1.02); EST Glomerular Filtration Rate 75 mL/min (>60); Est Glom Filt Rate - Afr Amer 91 mL/min (>60); Glucose 92 mg/dL (74-106); Potassium 4.1 mmol/L (3.5-5.1); Sodium Level 141 mmol/L (136-145)
== END ==
PROVIDERS: PCP Family Medicine; Referring Provider Nurse Practitioner Family; Visit Provider Nurse Practitioner Family
DX: I49.1 Atrial premature depolarization (principal); R07.9 Chest pain, unspecified; R47.02 Dysphasia
CPT/HCPCS: 36415; 80048; 84484; 85025

== ENCOUNTER → 2020-02-23 06:41 | Outpatient (CLI) | payer MEDICARE, OTHER, SELFPAY ==
[2020-02-09 09:46] VITALS: BMI 30.2
--- NOTE | 2020-02-23 10:05 | STRESSREP_ITS ---
Stress Test Report Date: 02-23-2020 Procedure: Pharmacologic stress nuclear imaging study Indications: Chest pain; paroxysmal atrial fibrillation; CAD; PAD Consent: Per the patient Procedure: The patient underwent pharmacologic (Regadenoson) evaluation with a peak heart rate of 100 beats per minute (70%predicted maximal heart rate) and a peak blood pressure of 144/86 mmHg. The baseline ECG demonstrated sinus rhythm. The peak pharmacologic ECG demonstrated no obvious ECG changes. There were no cardiac dysrhythmias pretest, during pharmacologic infusion, or recovery. There was no complaint of chest discomfort during pharmacologic infusion or recovery. The examination was discontinued secondary to completion of protocol. Impression: 1. Pharmacologic (Regadenoson) evaluation 2. Peak pharmacologic ECG with no obvious ECG changes. 3. There were no cardiac dysrhythmias pretest, during pharmacologic infusion, or recovery. 4. Nuclear images pending Myocardial perfusion imaging study: Technique: The patient was injected with 11.5 millicuries of technetium 99m Cardiolite and subsequently rest SPECT Cardiolite nuclear imaging was obtained in the horizontal long, vertical long, and short axis views. The patient underwent pharmacologic (Regadenoson) evaluation with a peak heart rate of 100 beats per minute (70% percent predicted maximal heart rate) and a peak blood pressure of 144/86 mmHg. The patient was injected with 34.2 millicuries of technetium 99m Cardiolite and subsequently stress SPECT Cardiolite nuclear imaging was obtained in the horizontal long, vertical long, and short axis views. A gated Cardiolite study at peak stress was obtained. Interpretation: Rest and stress SPECT Cardiolite nuclear imaging status post realignment, normalization, and attenuation correction demonstrate relative uniform tracer uptake and myocardial perfusion appearing within normal limits. There is end systolic thickening and brightening. The gated Cardiolite study demonstrates myocardial thickening and inward wall motion. The reported LVEF is 82%. Impression: 1. Rest and stress SPECT Cardiolite nuclear imaging demonstrate relative uniform tracer uptake and myocardial perfusion appearing within normal limits. 2. The gated Cardiolite study reports an LVEF of 82%. This note was generated with [employer] software. It may contain incorrect words, spelling, and punctuation that were not noted in checking the note before signing.
== END ==
PROVIDERS: PCP Family Medicine; Referring Provider Nurse Practitioner Family; Visit Provider Nurse Practitioner Family
DX: R07.9 Chest pain, unspecified (principal); I49.1 Atrial premature depolarization
CPT/HCPCS: 78452; 93017; A9500; A4216; J2785

== ENCOUNTER → 2020-04-12 10:52 | Outpatient (CLI) | payer MEDICARE, OTHER, SELFPAY ==
[2020-03-18 15:19] VITALS: BMI 30.1
[2020-04-12 12:12] LABS: Absolute Lymphocyte Count 1.19 X10^3/uL (0.83-4.51); Absolute Neutrophil Count 1.1 X10^3/uL (2.0-7.7); Basophil# 0.07 X10^3/uL; Basophil% 2.4 % (0-1); Eosinophil# 0.16 X10^3/uL; Eosinophils% 5.6 % (0-5); Hematocrit 47.7 % (37-47); Hemoglobin 15.6 g/dL (12.0-15.0); Lymphocyte # 1.19 X10^3/ul (4.0); Lymphocyte % 41.5 % (19-41); Mean Corp Hgb Conc 32.7 g/dL (32-36); Mean Corpuscular Hgb 32.4 pg (27.0-32.0); Mean Corpuscular Volume 99.2 fL (81-99); Mean Platelet Vol. 10.8 fl (6.2-12.0); Monocyte# 0.38 X10^3/uL; Monocyte% 13.2 % (0-10); NRBC Flagged by Analyzer 0 % (0-5); Neutrophil # 1.07 X10^3/uL (2.7-7.7); Neutrophil % 37.3 % (47-70); Platelet Count 209 K/mm3 (150-450); RBC Distribution Width CV 13.1 % (11.6-14.6); RBC Distribution Width SD 47.7 fl (35.1-43.9); Red Blood Count 4.81 M/mm3 (4.2-5.4); White Blood Count 2.9 K/mm3 (4.4-11.0)
[2020-04-12 12:39] LABS: Vitamin B12 899 pg/mL (211-911)
[2020-04-12 12:56] LABS: ALB/GLOB Ratio 1.1 RATIO (0.9-2.4); AST(SGOT) 19 U/L (15-37); Alanine Aminotransfer ALT/SGPT 17 U/L (13-56); Albumin, Serum 3.9 g/dL (3.2-5.0); Alkaline Phosphatase 94 U/L (45-117); Anion Gap 6 (5-15); BUN 8 mg/dL (7-18); BUN/Creat Ratio 11.5 RATIO (10-20); Calcium,Total 9.2 mg/dL (8.5-10.1); Chloride 108 mmol/L (98-107); Cholesterol 176 mg/dL (200); EST Glomerular Filtration Rate 86 mL/min (>60); Est Glom Filt Rate - Afr Amer 104 mL/min (>60); Globulin 3.6 g/dL (2.2-4.2); Glucose 78 mg/dL (74-106); High Density Lipoprotein 66 mg/dL; Magnesium 2.4 mg/dL (1.6-2.6); Potassium 3.9 mmol/L (3.5-5.1); Protein, Total 7.5 g/dL (6.4-8.2); Sodium Level 140 mmol/L (136-145); T4 Free Direct 1.19 ng/dL (0.76-1.46); Thyroid Stim Hormone (TSH) 2.03 uIU/mL (0.358-3.74); Triglycerides 68 mg/dL; Very Low Density Lipoprotein 14 mg/dL (5-40)
== END ==
PROVIDERS: PCP Family Medicine; Referring Provider Family Medicine; Visit Provider Family Medicine
DX: I49.3 Ventricular premature depolarization (principal); E03.9 Hypothyroidism, unspecified; I65.29 Occlusion and stenosis of unspecified carotid artery; E53.8 Deficiency of other specified B group vitamins
CPT/HCPCS: 36415; 80053; 80061; 82607; 83735; 84439; 84443; 85025

== ENCOUNTER → 2020-04-26 12:47 | Outpatient (CLI) | payer MEDICARE, OTHER, SELFPAY ==
[2020-03-18 15:19] VITALS: BMI 30.1
--- NOTE | 2020-04-26 12:49 | CDU_ITS ---
Reason For Study: Carotid stenosis Rt. Velocities/BP Lt. Velocities/BP Prox CCA 68.2/10.8 cm/sec. Prox CCA 77.9/13.3 cm/sec. Mid CCA 56.5/12.1 cm/sec. Mid CCA 106/15.1 cm/sec. Dist CCA 53.9/10.8 cm/sec. Dist CCA 75.3/12.6 cm/sec. Prox ICA 36/10.7 cm/sec. Prox ICA 58.6/14.6 cm/sec. Mid ICA 69.2/20.3 cm/sec. Mid ICA 64/16.8 cm/sec. Dist ICA 71.8/17.7 cm/sec. Dist ICA 68.1/20.6 cm/sec. Rt. ICA/CCA = 1.3. Lt. ICA/CCA = 0.9. Prox ECA 72.1/8.2 cm/sec. Prox ECA 66.7/2.8 cm/sec. Rt. Vert. 45.6/14.2 cm/sec. Lt. Vert. 36.5/9.5 cm/sec. Right Extracranial There is homogeneous, smooth atherosclerotic plaque noted in the right common carotid artery. There is homogeneous, smooth atherosclerotic plaque noted in the right internal carotid artery. There is intimal thickening but no significant atherosclerotic plaque noted in the right external carotid artery. Antegrade flow is noted in the right vertebral artery. Left Extracranial There is homogeneous, smooth atherosclerotic plaque noted in the left common carotid artery. There is heterogeneous, irregular atherosclerotic plaque noted in the left internal carotid artery. There is intimal thickening but no significant atherosclerotic plaque noted in the left external carotid artery. Antegrade flow is noted in the left vertebral artery. Procedure Carotid Duplex 53723. This is a Carotid Duplex examination using B-mode, color flow and specral Doppler. Exam performed in department. Interpretation Summary Mild (<50%) stenosis right extracranial internal carotid. Mild (<50%) stenosis left extracranial internal carotid. Flow within the vertebral arteries is antegrade bilaterally. Ordering Physician: Chavo Burton Referring Physician: Chavo Burton Performed By: Renee Schuster RVT
== END ==
PROVIDERS: PCP Family Medicine; Referring Provider Family Medicine; Visit Provider Family Medicine
DX: I65.23 Occlusion and stenosis of bilateral carotid arteries (principal)
CPT/HCPCS: 93880

== ENCOUNTER → 2020-05-17 15:50 | Outpatient (CLI) | payer MEDICARE, OTHER, SELFPAY ==
[2020-03-18 15:19] VITALS: BMI 30.1
--- NOTE | 2020-05-17 15:53 | RAD_ITS ---
STUDY: X-RAY - THORACIC SPINE REASON FOR EXAM: Female, 80 years old. THORACIC PAIN TECHNIQUE: 3 view(s) of the thoracic spine were obtained. COMPARISON: None. FINDINGS: There is an increase in the normal thoracic kyphosis. There is no substantial scoliosis. There is multilevel endplate spondylosis of the thoracic vertebrae. There is multilevel disc space narrowing of the thoracic spine. The soft tissue structures are unremarkable. RAD/Thoracic Spine 2 Views IMPRESSION: Multilevel degenerative disc disease without acute findings Electronically Signed: Roger Jason DO at 4:51 EDT Tel , Service support ,
--- NOTE | 2020-05-17 16:05 | RAD_ITS ---
INDICATION: LOW BACK PAIN EXAMINATION/TECHNIQUE: X-RAY - XR Spine Lumbar 2 or 3 Views COMPARISON: None. FINDINGS: VERTEBRAE: Age indeterminate mild compression deformities of L5 and T12. No spondylolisthesis. Exaggeration of the normal lumbar lordosis. Moderate multilevel facet arthropathy. DISCS: Moderate multilevel disc space narrowing and osteophytosis. INCLUDED ABDOMEN: Included bowel gas pattern is non-obstructive. OTHER: Partially visualized left hip arthroplasty. RAD/Lumbar Spine 2 or 3 Views IMPRESSION: Age-indeterminate mild compression deformities of L5 and T12. Moderate multilevel lumbar spondylosis and facet arthropathy. Electronically Signed: Juni Chavira MD at 18:32 EDT Tel , Service support ,
== END ==
PROVIDERS: PCP Family Medicine; Referring Provider Nurse Practitioner Family; Visit Provider Nurse Practitioner Family
DX: M54.5 Low back pain (principal); M54.6 Pain in thoracic spine
CPT/HCPCS: 72070; 72100

== ENCOUNTER → 2020-08-17 11:14 | Outpatient (CLI) | payer MEDICARE, OTHER, SELFPAY ==
[2020-07-20 11:20] VITALS: BMI 30.4
[2020-08-17 12:30] LABS: Absolute Lymphocyte Count 1.08 X10^3/uL (0.83-4.51); Absolute Neutrophil Count 1.9 X10^3/uL (2.0-7.7); Basophil# 0.07 X10^3/uL; Basophil% 1.8 % (0-1); Eosinophil# 0.12 X10^3/uL; Eosinophils% 3.1 % (0-5); Hematocrit 45.4 % (37-47); Hemoglobin 15.3 g/dL (12.0-15.0); Lymphocyte # 1.08 X10^3/ul (0.83-4.51); Lymphocyte % 27.9 % (19-41); Mean Corp Hgb Conc 33.7 g/dL (32-36); Mean Corpuscular Hgb 32.1 pg (27.0-32.0); Mean Corpuscular Volume 95.4 fL (81-99); Mean Platelet Vol. 10.7 fl (6.2-12.0); Monocyte% 18.1 % (0-10); NRBC Flagged by Analyzer 0 % (0-5); Neutrophil # 1.89 X10^3/uL (2.7-7.7); Neutrophil % 48.8 % (47-70); Platelet Count 273 K/mm3 (150-450); RBC Distribution Width CV 13.1 % (11.6-14.6); RBC Distribution Width SD 46.4 fl (35.1-43.9); Red Blood Count 4.76 M/mm3 (4.2-5.4); White Blood Count 3.9 K/mm3 (4.4-11.0)
[2020-08-17 12:55] LABS: Vitamin B12 > 2000 pg/mL (211-911)
[2020-08-17 13:06] LABS: ALB/GLOB Ratio 0.8 RATIO (0.9-2.4); AST(SGOT) 23 U/L (15-37); Alanine Aminotransfer ALT/SGPT 16 U/L (13-56); Albumin, Serum 3.5 g/dL (3.2-5.0); Alkaline Phosphatase 85 U/L (45-117); Anion Gap 7 (5-15); BUN 12 mg/dL (7-18); BUN/Creat Ratio 13.4 RATIO (10-20); Bilirubin, Direct 0.19 mg/dL (0.00-0.30); Chloride 105 mmol/L (98-107); Cholesterol 167 mg/dL (200); EST Glomerular Filtration Rate 64 mL/min (>60); Est Glom Filt Rate - Afr Amer 78 mL/min (>60); Globulin 4.2 g/dL (2.2-4.2); Glucose 94 mg/dL (74-106); High Density Lipoprotein 46 mg/dL; Magnesium 2.2 mg/dL (1.6-2.6); Potassium 3.4 mmol/L (3.5-5.1); Protein, Total 7.7 g/dL (6.4-8.2); Sodium Level 137 mmol/L (136-145); T4 Free Direct 1.35 ng/dL (0.76-1.46); Thyroid Stim Hormone (TSH) 1.47 uIU/mL (0.358-3.74); Triglycerides 106 mg/dL; Very Low Density Lipoprotein 21 mg/dL (5-40)
[2020-08-18 05:08] LABS: HEPATITIS B SURFACE AG Negative (Negative); Hepatitis A AB, Total Positive (Negative); Hepatitis A IgM Antibody Negative (Negative); Hepatitis B Core AB IgM Negative (Negative); Hepatitis B Core Ab Total Negative (Negative); Hepatitis C Ab <0.1 s/co ratio (0.0-0.9)
[2020-08-18 07:41] LABS: Hep B Surface Antibodies Non Reactive (.)
== END ==
PROVIDERS: PCP Family Medicine; Visit Provider Family Medicine
DX: I65.29 Occlusion and stenosis of unspecified carotid artery (principal); I49.3 Ventricular premature depolarization; E03.9 Hypothyroidism, unspecified; E53.8 Deficiency of other specified B group vitamins; R79.89 Other specified abnormal findings of blood chemistry
CPT/HCPCS: 36415; 80053; 80061; 82248; 82607; 83735; 84439; 84443; 85025; 86704; 86705; 86706; 86708; 86709; 86803; 87340

== ENCOUNTER → 2020-11-15 17:01 | Outpatient (CLI) | payer MEDICARE, OTHER, SELFPAY ==
--- NOTE | 2020-11-15 17:04 | RAD_ITS ---
STUDY: X-RAY - BILATERAL RIBS WITH CHEST REASON FOR EXAM: Female, 80 years old. FALL TECHNIQUE - RIBS: 4 view(s) of the ribs. TECHNIQUE - CHEST: Single PA view of the chest. COMPARISON: None. FINDINGS - RIBS : There is severe demineralization of the osseous structures which diminishes the diagnostic sensitivity of this examination, however there is no visualized rib fracture. FINDINGS - CHEST: The lungs are clear and expanded. There is no demonstrated pleural abnormality. Normal size heart. Normal mediastinum and andreas. Normal visualized pulmonary arteries. There is atherosclerotic calcification of the aortic arch with tortuosity. Normal visualized thoracic spine. Normal visualized ribs, clavicles, and shoulders. There is no demonstrated abnormality of the visualized soft tissue structures of the upper abdomen. There are several surgical clips along the right subaxillary region. RAD/Ribs Jermaine Min 4V w/PA Chest IMPRESSION: RIBS: No acute fracture. CHEST: No acute cardiopulmonary disease. Electronically Signed: Janice Whalen MD at 1:16 EDT , Service support ,
--- NOTE | 2020-11-15 17:04 | RAD_ITS ---
STUDY: X-RAY - THORACIC SPINE REASON FOR EXAM: Female, 80 years old. FALL TECHNIQUE: 3 view(s) of the thoracic spine were obtained. COMPARISON: None. FINDINGS: There is an increase in the normal thoracic kyphosis. There is no substantial scoliosis. There is demineralization of the thoracic spine with endplate spondylosis. There is multilevel disc space narrowing of the thoracic spine. The soft tissue structures are unremarkable. RAD/Thoracic Spine 2 Views IMPRESSION: Diffuse osteopenia/osteoporosis along with multilevel degenerative disease. No acute fracture or subluxation. Electronically Signed: Janice Whalen MD at 0:53 EDT , Service support ,
== END ==
PROVIDERS: PCP Family Medicine; Referring Provider Family Medicine; Visit Provider Family Medicine
DX: Z91.81 History of falling (principal); Z04.3 Encounter for examination and observation following other accident
CPT/HCPCS: 71111; 72070

== ENCOUNTER 2021-03-22 11:52 | Outpatient (CLI) | payer MEDICARE, OTHER, SELFPAY ==
[2021-03-22 15:31] LABS: Absolute Lymphocyte Count 1.12 X10^3/uL (0.83-4.51); Absolute Neutrophil Count 1.4 X10^3/uL (2.0-7.7); Basophil# 0.05 X10^3/uL; Basophil% 1.7 % (0-1); Eosinophil# 0.09 X10^3/uL; Hematocrit 42.1 % (37-47); Hemoglobin 14.3 g/dL (12.0-15.0); Lymphocyte # 1.12 X10^3/ul (0.83-4.51); Lymphocyte % 37.1 % (19-41); Mean Corpuscular Hgb 33.7 pg (27.0-32.0); Mean Corpuscular Volume 99.3 fL (81-99); Mean Platelet Vol. 11.4 fl (6.2-12.0); Monocyte# 0.35 X10^3/uL; Monocyte% 11.6 % (0-10); NRBC Flagged by Analyzer 0 % (0-5); Neutrophil % 46.3 % (47-70); Platelet Count 220 K/mm3 (150-450); RBC Distribution Width CV 14.4 % (11.6-14.6); RBC Distribution Width SD 52.9 fl (35.1-43.9); Red Blood Count 4.24 M/mm3 (4.2-5.4)
[2021-03-22 15:42] LABS: ALB/GLOB Ratio 1.2 RATIO (0.9-2.4); AST(SGOT) 20 U/L (15-37); Alanine Aminotransfer ALT/SGPT 15 U/L (13-56); Albumin, Serum 3.7 g/dL (3.2-5.0); Alkaline Phosphatase 80 U/L (45-117); Anion Gap 5 (5-15); BUN 9 mg/dL (7-18); BUN/Creat Ratio 14.4 RATIO (10-20); Chloride 110 mmol/L (98-107); Creatinine, Serum 0.62 mg/dL (0.55-1.02); EST Glomerular Filtration Rate 98 mL/min (>60); Est Glom Filt Rate - Afr Amer 118 mL/min (>60); Globulin 3.2 g/dL (2.2-4.2); Glucose 81 mg/dL (74-106); Potassium 3.9 mmol/L (3.5-5.1); Protein, Total 6.9 g/dL (6.4-8.2); Sodium Level 142 mmol/L (136-145)
== END 2021-03-22 23:59 | disposition home or self-care (01) ==
LOC: MFPLAB 12:00
PROVIDERS: PCP Family Medicine; Referring Provider Family Medicine; Visit Provider Family Medicine
DX: Z01.818 Encounter for other preprocedural examination (principal)
CPT/HCPCS: 36415; 80053; 85025

== ENCOUNTER 2021-04-03 08:27 | Day surgery (SDC) | payer MEDICARE, OTHER, SELFPAY ==
[2021-04-03] VITALS (7 sets, daily range): BP systolic 142–168; BP diastolic 66–77; PULSE 52–86; RESP 16–18; TEMP 36.6–36.9; O2SAT 99–100; BMI 25.6
[2021-04-03] MEDS: Lactated Ringers 1,000 ML 15 ML IV (09:18)
--- NOTE | 2021-04-03 10:00 | RAD_ITS ---
STUDY: X-RAY - RIGHT FOOT CLINICAL: Female, 81 years old. PAIN TECHNIQUE: 2 view(s) of the foot. COMPARISON: None. FINDINGS: 1:08 minutes of fluoroscopy of the right foot was utilized in the operating room during the third and fourth digit arthrodesis.. RAD/Foot 2 Views IMPRESSION: Fluoroscopy during surgery. Electronically Signed: Nhan Liu MD at 15:29 EST ,
--- NOTE | 2021-04-03 10:00 | BON_PTH ---
PATIENT: POP HORNER LOC: [facility] [place] U#:[id number] AGE/SX: 81/F ROOM: RE04/03/[address]: Dr. Chalo Velazquez DPM : 1940 BED: DIS: 04/03/2021 SPEC #: [id number] RECD: 04/03/21 13:41 STATUS: CHAR REQ #: [id number] ABHISHEK: 04/03/21 10:[address]: Chalo Velazquez DEPT: SURGICAL PATHOLOGY RECD BY: Noelle Lai ENTERED: 04/04/21 07:24 SP TYPE: Bone OTHR DR: No Primary Care Phys Tissues: Bone of foot, NOS Procedures: Decalcification bone/plaque Surgery Specimen Level IV HEADER OPERATION: Removal bone spur with arthrodesis of third, fourth and fifth toes PRE-OP DIAGNOSIS: Fcoe third, fourth and fifth toes TISSUE SUBMITTED: Yobany, right side, third, fourth and fifth toes MICROSCOPIC DIAGNOSIS Third, fourth and fifth toes, right side, excisions: Fragments of cartilage, bone and tissue with reactive and focal reparative change. See comment. AM:digna 04/05/2021 COMMENT The findings are consistent with hammertoe deformities. Clinical correlation is suggested. MICROSCOPIC DESCRIPTION Slides are reviewed. GROSS DESCRIPTION Received in fixative is one container labeled with the patient's name and designated yobany, right third, fourth and fifth toes. The specimen consists of multiple fragments of bone that in aggregate measure 2 x 2 x 0.2 cm. The entire specimen is submitted in one cassette after decalcification. / SJ:digna 04/04/2021 TC:5 CPT: 97172, 52456
[2021-04-03] MEDS: Cefazolin 2 GM in 0.9% Normal Saline 100 ML IV (10:43)
--- NOTE | 2021-04-03 10:43 | DCINST_ITS ---
Discharge Instructions Diet Discharge Diet: Light diet - advance as tolerated Activity Weight Bearing Status: Partial weight bearing (Ok to put weight on left heel only for transitions, otherwise no weightbearing to left foot.) Keep extremity elevated above heart level: Left Leg (Keep left foot elevated with pillows for at least 50 minutes of every hour.) Dressing / Incision Call your doctor if your incision/area has: Continuous Slow Oozing, Sudden Increased Bleeding and Foul Smelling Discharge Call your doctor if you observe: Fever of 101 or Higher, Shortness of breath, Ch est pain, Increased palpitations (irregular heartbeat), Calf discomfort and Uncontrolled pain Change Dressing in: leave in place till F/U Remove Dressing in: leave in place till F/U Cleanse incision/area with: Keep Dressing Clean & Dry Follow Up Care Please Follow Up With: Chalo Velazquez DPM When: next week in office, sooner if needed. Test Results: Test results from this visit will be discussed in further detail at your follow-up appointment, if applicable. Discharge Plan Admission Attending Provider: Chalo Velazquez Primary Care Provider: Care Physician,No Primary Discharge Orders/Prescriptions Prescriptions: No Action metoprolol succinate 25 mg tablet extended release 24 hr 25 mg PO DAILY RF: 0 levothyroxine 88 MCG tablet 88 mcg PO DAILY RF: 0 apixaban 5 mg tablet 5 mg PO BID Qty: 180 RF: 3
[2021-04-03] MEDS: Bupivacaine Mpf 0.5% 30 ML VIAL (11:01)
--- NOTE | 2021-04-03 12:29 | PCM.OPRPT ---
Report of Operation Date of Procedure: 04/03/21 Pre-Operative Diagnosis: Hammer toes 3, 4, and 5 toes right foot Post-Operative Diagnosis: Same Surgery/Procedure Performed:: Arthrodesis right 3rd and 4th toes, Arthroplasty right 5th toe Surgeon: Chalo Velazquez sports broadcasting internship: Dr. 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 She had previous surgery on the toes, but toe are deformed and painful despite nonsurgical care. She has elected to undergo surgical intervention. This was discussed with her, reviewed the possible benefits vs risks, goals, expectations, alternative options, and typical healing/post op recovery. The consent forms were reviewed with her, and she freely signed them. She would like to proceed forward. All of questions were answered. No guarantees were given nor implied. No warranties were given. Operative Procedure: The patient was brought back into the operating room and was placed on the operating room table in the supine position. Patient was carefully secured to the operating room table with a safety belt around the waist. A time out was performed and the patient was properly identified and the surgical plan was confirmed. The patient received 2g of IV cefazolin for antibiotic prophylaxis. A well padded pneumatic tourniquet was applied around the patient's right ankle. The patient received anesthesia per the anesthesiologist. The right foot was scrubbed, prepped, draped in the usual aseptic fashion. Further attention was directed to the right foot and there again was noted to be 3-5 hammer toes with significant callus formation on the lateral 3rd toe due to rubbing from the 4th toe A total of 12mL of 0.5% Bupivacaine pain was given as a 3rd, 4th and 5th ray nerve block on the right foot. The right foot was exsanguinated with an Esmarch bandage and the ankle pneumatic tourniquet was inflated to 250mmHg. Right 3rd digit hammer toe: Attention was directed to the toe on the right foot. A dorsal linear longitudinal incision was made over the distal (DIPJ) and proximal interphalangeal joints (PIPJ) of the toe. An incision was made longitudinally to the extensor digitorum longus tendon and split down the middle, leaving the ends intact, this was done with a 15 blade. The PIPJ was already fused, the dorsal DIPJ joint capsule was incised with a 15 blade. The cartilage from the head of the middle phalanx was resected using a powered sagittal saw, and cartilage from the base of the distal phalanx was resected using a sagittal saw. There was a large bone spur noted to the distal lateral aspect of the had of the middle phalanx which was resected. The site was flushed out with copious amounts of normal saline solution. An Arthrex FT compression screw was placed through the phalanges of the toe holding the toe in rectus position. This was confirmed with intra operative fluoroscopy. The site was again flushed out with copious amounts of normal saline solution. The subcutaneous tissue was reapproximated using 4-0 Vicryl, and the skin was reapproximated using 3-0 Nylon. Right 4th digit hammer toe: Attention was directed to the toe on the right foot. A dorsal linear longitudinal incision was made over the proximal interphalangeal joint (PIPJ) of the toe. An incision was made longitudinally to the extensor digitorum longus tendon and split down the middle, leaving the ends intact, this was done with a 15 blade. The dorsal PIPJ joint capsule was incised with a 15 blade. The cartilage from the head of the proximal phalanx was resected using a powered sagittal saw, and cartilage from the base of the middle phalanx was resected using a sagittal saw. The site was flushed out with copious amounts of normal saline solution. An Arthrex FT compression screw was placed through the phalanges of the toe holding the toe in rectus position. This was confirmed with intra operative fluoroscopy. The site was flushed out with copious amounts of normal saline solution. The subcutaneous tissue was reapproximated using 4-0 Vicryl, and the skin was reapproximated using 3-0 Nylon. Right 5th digit hammer toe: Two oblique semi-elliptical converging skin incisions were made around the dorsal aspect of the proximal interphalangeal joint (PIPJ) of the 5th toe. The skin within the incisions was excised. The extensor digitorum longus tendon was visualized and incised transversely with a 15 blade. The dorsal PIPJ joint capsule was incised with a 15 blade. The extensor tendon was reflected off of the head of the proximal phalanx. The PIPJ was visualized. The head of the proximal phalanx was resected using a powered sagittal saw, and this was sent to pathology. The site was flushed out with copious amounts of normal saline solution. The site was again flushed out with copious amounts of normal saline solution. The joint capsule and extensor digitorum longus tendon was reapproximated using 4-0 Vicryl, the skin was reapproximated using 4-0 Nylon. There was noted to be some contracture of the 3rd and 4th toes at the level of the metatarsal phalangeal joint (MTPJ) due to tight capsule. Therefore using a 15 blade a very small incision was made to the dorsal aspect of the 3rd intermetatarsal space, careful dissection was completed down to the 3rd and 4th metatarsal phalangeal joint capsules. The lateral capsule of the 3rd MTPJ and medial capsule of the 4th MTPJ were releases of the contracture. The site was flushed out with copious amounts of normal saline solution. The skin was reapproximated using 3-0 Nylon. The pneumatic tourniquet was deflated and there was immediate return of warmth and perfusion to the foot and to all toes on the foot with normal temperature gradient and CFT < 2 seconds to all toes. Toes were in rectus position. Hemostasis was achieved with pressure. Also of note all vital structures including all vital neurovascular and soft tissue structures were properly identified, retracted, and protected as necessary during the procedures. Also the above was completed with the aid of intra operative fluoroscopy as needed. Betadine soaked adaptic, 4x4 gauze, Kerlix, and sun bandages were applied being sure to apply it not too tight. The patient tolerated the above operative procedure well at the anesthesia well with no complication. The patient was transported to the recovery room with vital signs stable and in good condition. Post operative orders were placed. Post operative instructions were reviewed and dispensed verbal and written - this was reviewed with patient and her daughter who was with her today. No weightbearing right foot, keep foot elevated for at least 50 minutes of every hour, keep dressing clean, dry and intact. Patient is to follow up with me in 1 week, sooner if needed. Also post op foot xrays (right) were obtained and reviewed in the PACU. Grafts/Implants Used: 2 x 2.5mm Arthrex FT screws Complications None
--- NOTE | 2021-04-03 12:40 | RAD_ITS ---
STUDY: X-RAY - RIGHT FOOT CLINICAL: Female, 81 years old. Postoperative evaluation after fusion. TECHNIQUE: 3 view(s) of the foot. COMPARISON: 04/03/2020. FINDINGS: Osteopenia. Inferior calcaneal spur. Mild arthrosis of the tibiotalar joint. Mild arthrosis of the subtalar joint. Mild arthrosis of the midfoot. Moderate arthrosis of the MTP and IP joints with hammertoe deformities. Postfusion changes of the phalanges of the third and fourth digits. No complicating features. The soft tissue structures are unremarkable. RAD/Foot min 3 Views IMPRESSION: Osteopenia with osteoarthritic changes. Fusion of the third and fourth digit phalanges without complicating features. Electronically Signed: Pedro Vásquez MD at 13:24 EST ,
== END 2021-04-03 23:59 | disposition home or self-care (01) ==
LOC: SDC 08:30 → AC 08:31
PROVIDERS: Referring Provider Podiatrist; Visit Provider Podiatrist
PROC: (CPT 28285; principal; 2021-04-03 09:45)
DX: M20.41 Other hammer toe(s) (acquired), right foot (principal); M06.9 Rheumatoid arthritis, unspecified; I70.0 Atherosclerosis of aorta; I48.0 Paroxysmal atrial fibrillation; M20.5X1 Other deformities of toe(s) (acquired), right foot; I49.1 Atrial premature depolarization; I73.00 Raynaud's syndrome without gangrene; E03.9 Hypothyroidism, unspecified; E53.8 Deficiency of other specified B group vitamins; G47.33 Obstructive sleep apnea (adult) (pediatric); Z79.01 Long term (current) use of anticoagulants; Z79.899 Other long term (current) drug therapy; Z87.891 Personal history of nicotine dependence
CPT/HCPCS: 28285 ×3; 28270; 73620; 73630; 76000; 88304; 88305; 88311; C1713; J7120

== ENCOUNTER → 2022-05-07 | Outpatient (CLI) | payer MEDICARE, OTHER, SELFPAY ==
[2022-05-07 18:03] LABS: Absolute Lymphocyte Count 1.43 X10^3/uL (0.83-4.51); Absolute Neutrophil Count 1.9 X10^3/uL (2.0-7.7); Basophil# 0.06 X10^3/uL; Basophil% 1.5 % (0-1); Eosinophil# 0.19 X10^3/uL; Eosinophils% 4.7 % (0-5); Hemoglobin 15.2 g/dL (12.0-15.0); Lymphocyte # 1.43 X10^3/ul (0.83-4.51); Lymphocyte % 35.1 % (19-41); Mean Corp Hgb Conc 33.8 g/dL (32-36); Mean Corpuscular Hgb 33.1 pg (27.0-32.0); Mean Platelet Vol. 11.4 fl (6.2-12.0); Monocyte# 0.51 X10^3/uL; Monocyte% 12.5 % (0-10); NRBC Flagged by Analyzer 0 % (0-5); Neutrophil # 1.87 X10^3/uL (2.7-7.7); Platelet Count 204 K/mm3 (150-450); RBC Distribution Width CV 12.9 % (11.6-14.6); RBC Distribution Width SD 45.9 fl (35.1-43.9); Red Blood Count 4.59 M/mm3 (4.2-5.4); White Blood Count 4.1 K/mm3 (4.4-11.0)
[2022-05-07 18:26] LABS: ALB/GLOB Ratio 1.1 RATIO (0.9-2.4); AST(SGOT) 23 U/L (15-37); Alanine Aminotransfer ALT/SGPT 19 U/L (13-56); Albumin, Serum 3.7 g/dL (3.2-5.0); Alkaline Phosphatase 107 U/L (45-117); Anion Gap 7 (5-15); BUN 12 mg/dL (7-18); BUN/Creat Ratio 16.8 RATIO (10-20); Chloride 111 mmol/L (98-107); Creatinine, Serum 0.71 mg/dL (0.55-1.02); EST Glomerular Filtration Rate 83 mL/min (>60); Est Glom Filt Rate - Afr Amer 101 mL/min (>60); Globulin 3.3 g/dL (2.2-4.2); Glucose 88 mg/dL (74-106); Sodium Level 139 mmol/L (136-145)
== END | disposition home or self-care (01) ==
LOC: MFPLAB 15:04 → MTLAB 15:22
PROVIDERS: Referring Provider Family Medicine; Visit Provider Family Medicine
DX: Z01.818 Encounter for other preprocedural examination (principal)
CPT/HCPCS: 36415; 80053; 85025

== ENCOUNTER 2022-06-01 07:25 | Day surgery (SDC) | payer MEDICARE, OTHER, SELFPAY ==
[2022-06-01 07:56] VITALS: BP 137/63; PULSE 60; RESP 16; TEMP 36.7; O2SAT 100; BMI 29.5
[2022-06-01] MEDS: Lactated Ringers 1,000 ML 15 ML IV (08:03)
[2022-06-01] MEDS: Cefazolin 2 GM in 0.9% Normal Saline 100 ML IV (08:44)
--- NOTE | 2022-06-01 09:00 | RAD_ITS ---
STUDY: X-RAY - RIGHT FOOT CLINICAL: Female, 82 years old. REMOVAL OF SCREW THIRD TOE TECHNIQUE: AP view(s) of the foot. COMPARISON: April 03, 2021 FINDINGS: Single fluoroscopic guided view demonstrates presence of postsurgical changes status post fusion of the phalanges of the fourth digit. The previously noted orthopedic hardware has been removed from the third toe. RAD/Foot min 3 Views IMPRESSION: Status post fluoroscopic guided hardware removal from third toe Electronically Signed: Chalo Maier MD at 17:01 EDT ,
[2022-06-01] MEDS: Bupivacaine Mpf 0.5% 30 ML VIAL (09:08)
--- NOTE | 2022-06-01 09:23 | DCINST_ITS ---
Discharge Instructions Diet Discharge Diet: Light diet - advance as tolerated Activity Discharge Activity: May Not Drive Weight Bearing Status: - (Limit weightbearing on right foot.) Keep extremity elevated above heart level: Right Leg (Keep right foot elevated as much as possible.) Dressing / Incision Call your doctor if your incision/area has: Sudden Increased Bleeding and Foul Smelling Discharge Call your doctor if you observe: Fever of 101 or Higher, Shortness of breath, Chest pain, Calf discomfort and Uncontrolled pain Change Dressing in: 1 day Remove Dressing in: 1 day Cleanse incision/area with: Soap & Water Additional Dressing/Incision Instructions:: Change dressing right 3rd toe daily - cleanse with normal soap and water. Apply overlying gauze dressing. Follow Up Care Please Follow Up With: Chalo Velazquez DPM When: 1 week at office, sooner if needed. Test Results: Test results from this visit will be discussed in further detail at your follow- up appointment, if applicable. Discharge Plan Admission Attending Provider: Chalo Velazquez Primary Care Provider: MADISON RICKETTS Discharge Orders/Prescriptions Prescriptions: No Action metoprolol succinate 25 mg tablet extended release 24 hr 25 mg PO DAILY levothyroxine 88 MCG tablet 88 mcg PO DAILY apixaban 5 mg tablet 5 mg PO BID Qty: 180 3RF Referrals / Follow Up: MADISON RICKETTS [Other] Disposition Disposition (needs filled in before D/C Order can be placed): Home, Self Care
--- NOTE | 2022-06-01 09:24 | OP.PCM_ITS ---
Report of Operation Date of Procedure: 06/01/22 Pre-Operative Diagnosis: Symptomatic screw right 3rd toe Post-Operative Diagnosis: Same Surgery/Procedure Performed:: Removal of screw from right 3rd toe Surgeon: Chalo Velazquez informatics pharmacist: Type of Anesthesia: Local and MAC Specimen's removed: None Estimated Blood Loss (mL): <1mL Description of Procedure: Indications: Due to painful and prominent screw right 3rd toe we discussed options and she elected to proceed with removal of screw from the toe. We discus sed the possible benefits vs risks. The consent forms were reviewed with her and she freely signed them. Operative procedure: She was brought back to the operating room and placed on the operating room table in the supine position. A time out was performed. She received prophylactic antibiotic, and anesthesia per the anesthesia team. A total of 0.25% Bupivacaine plain was given as a right 3rd ray nerve block on the right foot after the skin was cleansed with 70% Isopropyl alcohol. The right foot was scrubbed, prepped and draped in the usual aseptic fashion. Further attention was directed to the 3rd toe on the right foot, a digital tourniquet was applied. A small skin incision was made to the tip of the toe. The screw was visualized and removed in toto without complication. The Remaining tissues were healthy and viable. The site was flushed out with copious amounts of normal saline solution. The skin incision was reapproximated using 3-0 Nylon. The tourniquet was removed and there was immediate return of blood flow to the toe with CFT < 2 seconds. A dressing was applied which consisted of betadine soln, adpatic and gauze. She tolerated the procedure well and anesthesia well with no complication. She was transported for the operating room to the recovery room with vital signs stable and in good condition. Post operative orders were placed, and post operative instructions have been reviewed. She will follow up as outpatient. Grafts/Implants Used: None Complications None
[2022-06-01 09:30] VITALS: BP 114/64; BP 137/63; PULSE 65; RESP 16; TEMP 36.9; O2SAT 96
[2022-06-01 09:35] VITALS: BP 137/63; BP 99/63; PULSE 62; RESP 16; O2SAT 100
[2022-06-01 09:40] VITALS: BP 137/63; BP 85/45; PULSE 60; RESP 16; O2SAT 100
[2022-06-01 09:45] VITALS: BP 129/81; BP 137/63; PULSE 60; RESP 16; TEMP 36.8; O2SAT 100
[2022-06-01 10:14] VITALS: BP 137/63
== END 2022-06-01 10:40 | disposition home or self-care (01) ==
LOC: SDC 07:28 → AC 07:29
PROVIDERS: Referring Provider Podiatrist; Visit Provider Podiatrist
PROC: (CPT 20680; principal; 2022-06-01 08:45)
DX: T84.84XA Pain due to internal orthopedic prosthetic devices, implants and grafts, initial encounter (principal); I48.0 Paroxysmal atrial fibrillation; Z79.01 Long term (current) use of anticoagulants; Z79.890 Hormone replacement therapy; K21.9 Gastro-esophageal reflux disease without esophagitis; E03.9 Hypothyroidism, unspecified; G47.33 Obstructive sleep apnea (adult) (pediatric); Z95.0 Presence of cardiac pacemaker
CPT/HCPCS: 20680; 01480; 73630; 76000; J7120; J2405